=== PATIENT | female | born 1990 | race Caucasian/White ===

== ENCOUNTER 2019-10-10 15:38 | Emergency (ER) | payer OTHER, SELFPAY ==
--- NOTE | 2019-10-10 15:51 | ED.GENADULT ---
HPI - General Adult General Chief complaint: Urogenital-Female Stated complaint: pos uti Time Seen by Provider: 10/10/19 15:59 Source: patient Mode of arrival: ambulatory Limitations: no limitations History of Present Illness HPI narrative: 29-year-old female patient presents to the [facility] with complaints of urinary symptoms for the past 2 days. Patient states she has had burning, urgency and frequency with a little bit of low back pain. Denies any abdominal pain, nausea, vomiting or diarrhea. Denies any fevers. Patient denies any breast-feeding or at this time. Related Data Home Medications Medication Instructions Recorded Confirmed dextroamphetamine-amphetamine 20 mg PO DAILY 08/21/19 10/10/19 [Adderall] Allergies Allergy/AdvReac Type Severity Reaction Status Date / Time Penicillins Allergy Unknown Verified 08/21/19 18:29 Review of Systems Review of Systems: Narrative: CONSTITUTIONAL: Denies fever, chills, or sweats. EYES: Denies visual changes, redness, or discharge. ENT: Denies rhinorrhea, congestion, sore throat, or otalgia. CARDIOVASCULAR: Denies chest pain, palpitations, or edema. RESPIRATORY: Denies cough or dyspnea. GASTROINTESTINAL: Denies abdominal pain, nausea, vomiting, or diarrhea. GENITOURINARY: Denies dysuria or hematuria. Positive pain with urination, urgency, frequency. SKIN: Denies rash or itching. MUSCULOSKELETAL: Positive low back pain, denies joint pain, or myalgia. NEUROLOGIC: Denies headache, numbness, or weakness. PSYCHIATRIC: Denies anxiety or depression. PMFSH Past Medical History Medical History Abnormal uterine bleeding Crohn's disease Depression Renal disease Kidney stones Social History Social History Smoking status: Former smoker Second hand tobacco smoke exposure: No Smoking end date: 08/14/10 Alcohol intake: current Gender identity (if verbalized by the patient): Female Comments At the time of my signature I agree with nursing past medical history, surgical, social, and family history. There is no relevant family history pertinent to the presenting complaint. Exam Narrative: Exam Narrative: GENERAL: Well-appearing, well-nourished, and in no acute distress. HEAD: Normocephalic, atraumatic. EYES: PERRLA and EOMI. ENT: Nares clear, no rhinorrhea or epistaxis. Mucous membranes moist. NECK: Supple. No lymphadenopathy CHEST: Clear to auscultation. No respiratory distress. HEART: Regular rate and rhythm. No murmur heard. Normal peripheral pulses. ABDOMEN: Soft, nontender, nondistended, normal active bowel sounds. No CVA tenderness on percussion. EXTREMITIES: Normal range of motion. No edema. SKIN: Warm, dry, no rash. NEURO: No focal deficits. Alert and oriented x3. Course Vital Signs Vital signs: Vital Signs Temperature 36.6 C 10/10/19 15:53 Pulse Rate 94 10/10/19 15:53 Respiratory Rate 20 10/10/19 15:53 Blood Pressure 103/57 L 10/10/19 15:53 Pulse Oximetry 100 10/10/19 15:53 Temperature 36.6 C 10/10/19 15:53 Pulse Rate 94 10/10/19 15:53 Respiratory Rate 20 10/10/19 15:53 Blood Pressure 103/57 L 10/10/19 15:53 Pulse Oximetry 100 10/10/19 15:53 Vital signs reviewed. Medical Decision Making Differential Diagnosis Differential Diagnosis: Differential diagnosis: Uncomplicated lower UTI, uncomplicated UTI, pyelonephritis Discussed with patient that based on her symptoms as well as her urine dip it does appear that she might have a UTI. Discussed with her we will start her on antibiotics for the symptoms and she can take Tylenol ibuprofen or [id number] AZO for her urinary pain. Patient verbalized understanding denies any other questions or concerns at this time. Vital Signs Vital Signs: Vital Signs Temperature 36.6 C 10/10/19 15:53 Pulse Rate 94 10/10/19 15:53 Respiratory Rate 20
[2019-10-10 15:53] VITALS: BP 103/57; PULSE 94; RESP 20; TEMP 36.6; O2SAT 100
== END 2019-10-10 16:06 | disposition home or self-care (01) ==
PROVIDERS: Emergency Provider Nurse Practitioner Family
DX: N30.01 Acute cystitis with hematuria (principal); Z87.891 Personal history of nicotine dependence; K50.90 Crohn's disease, unspecified, without complications
CPT/HCPCS: 81003; 87077; 87086; 87088; 87186; 99213; G0463

== ENCOUNTER 2020-07-17 13:31 | Emergency (ER) | payer OTHER, SELFPAY ==
--- NOTE | ~2020-07-17 | US_ITS ---
EXAMINATION: US OB <= 14 weeks fetus DATE: 07/17/2020 15:22 INDICATION: Left abdominal pain. TECHNIQUE: Real-time transabdominal and transvaginal pelvic ultrasound was performed. COMPARISON: None. FINDINGS: TRANSABDOMINAL ULTRASOUND: The uterus measures 7.3 x 5.2 x 5.3 cm. TRANSVAGINAL ULTRASOUND: There is an intrauterine gestational sac. A yolk sac is identified. The fet al crown rump length measures 1.0 cm, which correlates with an estimated gestational age of 7 weeks a nd 1 day(s) (+/-) 5 day(s). heart motion is identified measuring beats per minute (bpm) by M-mo de Doppler. The right ovary measures 3.1 x 2.5 x 2.4 cm. The left ovary measures 3.5 x 2.1 x 2.4 cm. There is normal vascular flow in the ovaries. There is no free fluid in the pelvis. IMPRESSION: 1. Single living intrauterine gestation with estimated date of delivery of 03/04/2021. Reviewed, dictated and finalized at location A. UNTING SUPERVISOR IMPRESSION: 1. Single living intrauterine gestation with estimated date of delivery of 02/12.
[2020-07-17 13:36] VITALS: BP 128/80; PULSE 103; RESP 18; TEMP 35.8; O2SAT 100
[2020-07-17 13:50] LABS: Basophils Absolute Auto 0.1 K/mm3 (0.0-0.1); Basophils Percent Auto 1.3 % (0.2-1.2); Eosinophils Absolute Auto 0.2 K/mm3 (0-0.3); Eosinophils Percent Auto 2.6 % (0-4.4); Hematocrit 46.5 % (37.0-47.0); Hemoglobin 16.4 g/dL (12.0-15.0); Immature Granulocyte Absolute 0.03 K/mm3 (0.00-0.031); Immature Granulocyte Percent A 0.3 % (0-0.5); Lymphocytes Absolute Auto 2.47 K/mm3 (0.9-3.2); Lymphocytes Percent Auto 26.5 % (18.3-44.2); Mean Corpuscular HGB Conc 35.3 g/dl (32-36); Mean Corpuscular Hemoglobin 32.3 pg (26-34); Mean Corpuscular Volume 91.7 fl (80-100); Mean Platelet Volume 8.3 fl (7.4-10.4); Monocytes Absolute Auto 0.5 K/mm3 (0.1-0.6); Monocytes Percent Auto 4.8 % (2.6-8.5); Neutrophils Percent Auto 64.5 % (45.5-73.1); Platelet Count Result 279 k/mm3 (150-375); Red Blood Count 5.07 M/mm3 (4.2-5.4); Red Cell Distribution Width 11.7 % (11.5-14.5); White Blood Count 9.3 K/mm3 (4.5-10.0)
--- NOTE | 2020-07-17 14:40 | ED.GENADULT ---
HPI - General Adult General Chief complaint: Abdominal Pain Stated complaint: abd and back pain/ Time Seen by Provider: 07/17/20 14:37 Source: patient Mode of arrival: ambulatory Limitations: no limitations History of Present Illness HPI narrative: Patient is a 30-year-old female who presents to emergency department for evaluation of left lower flank pain that has been present since this morning is a 7 out of 10 pain patient notes that she found out she was in the last week and has had no related complaints patient has follow-up on Monday with her board catcher Dr. Hernandez. Patient on arrival has had Tylenol only denies vaginal bleeding discharge vomiting URI symptoms or other complaints. Patient does note history of kidney stones. Related Data Allergies Allergy/AdvReac Type Severity Reaction Status Date / Time Penicillins Allergy Unknown Unknown Verified 07/17/20 14:40 Review of Systems Review of Systems: All systems reviewed & are unremarkable except as noted in HPI and below PMFSH Past Medical History Medical History (Updated 07/17/20 @ 17:53 by Manuel Bush PA-C) Abnormal uterine bleeding Crohn's disease Depression Renal disease Kidney stones Social History Social History Smoking status: Former smoker Second hand tobacco smoke exposure: No Smoking end date: 08/14/10 Alcohol intake: current Gender identity (if verbalized by the patient): Female Exam Narrative: Exam Narrative: GENERAL: Well-appearing, well-nourished, and in no acute distress. HEAD: Normocephalic, atraumatic. EYES: PERRLA and EOMI. ENT: Nares clear, no rhinorrhea or epistaxis. Mucous membranes moist. CHEST: Clear to auscultation. No respiratory distress. No wheezes rales or rhonchi HEART: Regular rate and rhythm. No murmur heard. Normal peripheral pulses. ABDOMEN: Soft, nontender, nondistende EXTREMITIES: Normal range of motion. No edema. SKIN: Warm, dry, no rash. NEURO: No focal deficits. Alert and oriented x3. PSYCH: Normal mood and affect. Course Course Emergency Course: Patient in the room at this time in no distress no vaginal bleeding patient patient will be managed as a kidney stone no findings concerning for UTI at this time patient given strict reasons to return Case was discussed with the board catcher who will follow the patient and agrees the patient can be managed in this nature given the findings presentation and history. No high risk changes in the ultrasound. Afebrile nontoxic-appearing without emesis Consultations Consultation #1: Discussed case with the board catcher who will follow the patient in clinic on Monday and agrees it can be managed as a kidney stone at this time Date: 07/17/20 Time: 17:50 Vital Signs Vital signs: Vital Signs Temperature 96.5 F L 07/17/20 13:36 Pulse Rate 103 H 07/17/20 13:36 Respiratory Rate 18 07/17/20 13:36 Blood Pressure 128/80 07/17/20 13:36 Pulse Oximetry 100 07/17/20 13:36 Temperature 96.5 F L 07/17/20 13:36 Pulse Rate 105 H 07/17/20 16:29 Respiratory Rate 18 07/17/20 13:36 Blood Pressure 106/72 07/17/20 16:29 Pulse Oximetry 100 07/17/20 13:36 Medical Decision Making MDM Narrative Medical decision making narrative: Patients with findings consistent with either kidney stone could be related however at this time patient hemodynamically stable ABCs intact afebrile nontoxic-appearing patient does not appear uncomfortable patient will follow in clinic as planned feels comfortable with this and is also been given reasons to return and agrees with the plan at hand Vital Signs Vital Signs: Vital Signs Temperature 96.5 F L 07/17/20 13:36 Pulse Rate 103 H 07/17/20 13:36 Respiratory Rate 18 07/17/20 13:36 Blood Pressure 128/80 07/17/20 13:36 Pulse Oximetry 100 07/17/20 13:36 Temperature 96.5 F L 07/17/20 13:36 Pulse Rate 105 H 1
[2020-07-17] MEDS: FAMOTIDINE 20 MG/2 ML VIAL IV PUSH (15:37)
[2020-07-17 15:38] LABS: Alanine Aminotransferase 19 U/L (4-35); Albumin Level 4.3 g/dL (3.5-5.1); Alkaline Phosphatase 39 U/L (38-126); Anion Gap 6 mmol/L (8-16); Aspartate Amino Transferase 24 U/L (14-36); Bilirubin,Total 0.4 mg/dL (0.2-1.3); Blood Urea Nitrogen 11 mg/dL (7-17); Calcium 9.2 mg/dL (8.4-10.2); Carbon Dioxide 26 mmol/L (22-30); Chloride 105 mmol/L (98-107); Estimated CRCL calculation 132 ml/min; Estimated Glomerular Filt Rate > 60; Glucose 103 mg/dL (65-105); Lipase 43 U/L (23-300); Potassium 4.2 mmol/L (3.4-5.0); Sodium 137 mmol/L (137-145)
[2020-07-17] MEDS: SODIUM CHLORIDE 0.9% IV 1,000 ML 999 ML IV CONT (16:06)
[2020-07-17 16:27] VITALS: BP 117/81; PULSE 79
[2020-07-17 16:28] VITALS: BP 112/71; PULSE 90
[2020-07-17 16:29] VITALS: BP 106/72; PULSE 105
[2020-07-17 16:49] LABS: Add Urine Microscopic? YES; Appearance Urine Cloudy (Clear); Bacteria Urine Trace /hpf; Bilirubin Urine Negative (Negative); Blood Urine 1+ (Negative); Color Urine Yellow (Yellow); Glucose Urine UA Negative (Negative); Ketones Urine Negative (Negative); Leukocyte Esterase Ur 1+ LEU/UL (Negative); Mucus Urine Few /lpf; Nitrate Urine Negative (Negative); Protein Urine Negative (Negative); Squamous Epithelial Cell Urine Many /hpf (Few); Urobilinogen Urine Negative mg/dL (<2.0)
[2020-07-17 18:34] VITALS: BP 128/82; PULSE 80; RESP 16; O2SAT 97
--- NOTE | 2020-07-24 17:46 | PC.NURSE ---
LATE ENTRY This note is being entered to document information to the patient's record. The following information was omitted on [07/17/20], by [richard telles]. [facility] start 175 end [id number]
== END 2020-07-17 18:34 | disposition home or self-care (01) ==
PROVIDERS: Emergency Medicine Emergency Medical Services; Emergency Provider Emergency Medicine; PCP Nurse Practitioner Family
DX: O26.891 Other specified pregnancy related conditions, first trimester (principal); R10.32 Left lower quadrant pain; O99.611 Diseases of the digestive system complicating pregnancy, first trimester; K50.90 Crohn's disease, unspecified, without complications; Z87.891 Personal history of nicotine dependence; Z87.442 Personal history of urinary calculi; Z3A.01 Less than 8 weeks gestation of pregnancy
CPT/HCPCS: 36415; 76801; 80053; 81001; 83690; 84702; 85025; 85461; 87086; 87088; 96374; 96375; 99284; J0131; J7030

== ENCOUNTER 2020-07-27 09:25 | Outpatient (CLI) | payer OTHER, SELFPAY ==
--- NOTE | ~2020-07-27 | US_ITS ---
EXAMINATION: US OB <=14 wk fetus w TV DATE: 07/27/2020 10:25 INDICATION: with inconclusive viability during first trimester. TECHNIQUE: Real-time pelvic ultrasound utilizing both a transvaginal and transabdominal probe was pe rformed. The interpreting radiologist was not present for the study. COMPARISON: 07/17/2020 FINDINGS: The uterus measures 11.1 x 4.8 x 6.1 cm. There is an intrauterine gestational sac. A yolk sac and fe kerri pole are identified. The crown rump length measures 1.6 cm, which correlates with an estimated ge stational age of 8 weeks and 0 days. No heart motion evident by M-mode Doppler. 9 x 8 x 4 mm sm all hypoechoic subchorionic hematoma. The right ovary measures 1.9 x 3.3 x 1.9 cm. The left ovary measures 2.8 x 1.6 x 2.3 cm. 10 mm hypoec hoic likely corpus luteum cyst in the right ovary. Vascular flow identified in both ovaries on color Doppler. There is no free fluid in the pelvis. IMPRESSION: 1. Single intrauterine fetus with crown-rump length of 1.6 cm correspond to estimated gestational age of 8 weeks and 1 day but with no discernible heart motion on Doppler imaging consistent with d emise. 2. Small subchorionic hematoma. Reviewed, dictated and finalized at location B. ING WHEEL OPERATOR HELPER IMPRESSION: 1. Single intrauterine fetus with crown-rump length of 1.6 cm correspond to est imated gestational age of 8 weeks and 1 day but with no discernible heart motio n on Doppler imaging consistent with demise. 2. Small subchorionic hematoma.
== END 2020-07-27 09:26 | disposition home or self-care (01) ==
PROVIDERS: PCP Nurse Practitioner Family; Visit Provider Obstetrics & Gynecology
DX: O36.80X0 Pregnancy with inconclusive fetal viability, not applicable or unspecified (principal); Z3A.00 Weeks of gestation of pregnancy not specified
CPT/HCPCS: 76801; 76817

== ENCOUNTER 2020-07-28 19:02 | Emergency (ER) | payer OTHER, SELFPAY ==
[2020-07-28 19:06] VITALS: BP 127/76; PULSE 119; RESP 18; TEMP 36.4; O2SAT 96
--- NOTE | 2020-07-28 19:10 | ED.PREGNANCY ---
HPI - General Chief complaint: Urogenital-Female Stated complaint: Miscarriage, ABD Pain Time Seen by Provider: 07/28/20 19:04 History of Present Illness HPI Narrative: 30 yo female at approximately 10 weeks gestation presents with expected miscarriage. She reports that she had an US done yesterday here show a fetus that was smaller than expected size with no heart activity seen. Today she reports that she had heavy bleeding and severe pain. On questioning she is not able to quatify bleeding, but denies going through more than a pad per hour. Related Data Home Medications Medication Instructions Recorded Confirmed dextroamphetamine-amphetamine 20 20 mg PO DAILY 07/21/20 mg tablet prenat.vits,jatinder,mne-xdvl-inxze 1 tablet PO DAILY 07/22/20 07/22/20 Allergies Allergy/AdvReac Type Severity Reaction Status Date / Time Penicillins Allergy Unknown Unknown Verified 07/28/20 19:09 Review of Systems Review of Systems: All systems reviewed & are unremarkable except as noted in HPI and below Constitutional: Constitutional: Denies chills and Denies fever(s) ENT: Reports dizziness Cardiovascular: Cardiovascular: Denies chest pain Respiratory: Respiratory: Denies dyspnea Gastrointestinal: Gastrointestinal: Reports abdominal pain, Denies diarrhea, Reports nausea and Denies vomiting Genitourinary: Genitourinary: Reports abnormal vaginal bleeding, Denies hematuria, Denies dysuria and Denies vaginal discharge Neurologic: Denies dizziness and Denies weakness PMFSH Past Medical History Medical History Abnormal uterine bleeding Crohn's disease Depression Renal disease Kidney stones Surgical History Surgical History Hx of laparoscopy Social History Social History Smoking status: Current every day smoker Second hand tobacco smoke exposure: No Smoking end date: 08/14/10 Alcohol intake: current Gender identity (if verbalized by the patient): Female Exam Const: General: healthy appearing, no acute distress and alert Orientation/consciousness: patient oriented x3 HENMT: Head: normal to inspection Neck: Neck: normal visual inspection and no lymphadenopathy Chest: Chest palpation & inspection: no tenderness Resp: Effort & Inspection: normal respiratory effort Auscultation: clear to auscultation bilaterally, no rales, no rhonchi and no wheezes Cardio: Jugular venous distension: no JVD Rate: regular rate Rhythm: regular rhythm Heart sounds: no murmurs GI: Inspection: non-distended GI Palp: Yes Soft to palpation and Yes Tenderness to palpation present (GI) (suprapubic) Skin: General skin exam: normal color Neuro: General: patient oriented x3 and moves all extremities Speech: normal speech Extrem: General: no edema Psych: Appearance: well kempt Affect: normal affect Course Vital Signs Vital signs: Vital Signs Temperature 36.4 C 07/28/20 19:06 Pulse Rate 119 H 07/28/20 19:06 Respiratory Rate 18 07/28/20 19:06 Blood Pressure 127/76 07/28/20 19:06 Pulse Oximetry 96 07/28/20 19:06 Temperature 36.4 C 07/28/20 19:06 Pulse Rate 68 07/28/20 21:31 Respiratory Rate 16 07/28/20 21:31 Blood Pressure 118/76 07/28/20 21:31 Pulse Oximetry 99 07/28/20 21:31 MDM - OB/Uterine Contractions MDM Narrative Medical decision making narrative: No rapid bleeding. rh positive. Case discussed with Dr. Toledo. No indication for labs or admission. She can follow-up with them tomorrow. Medical Records Attestation: I reviewed the patient's medical records. Lab Data Attestation: I reviewed the patient's lab results. Discharge Plan Discharge Clinical Impression: Incomplete miscarriage Patient Disposition: Home, Self-Care Condition: Stable Instructions: Miscarriage (ED)
[2020-07-28] MEDS: HYDROcodone/acetaminophen (*CRX) 5-325 MG TABLET 1 TAB PO (20:10)
[2020-07-28] MEDS: KETOROLAC (*BKC) 60 MG/2 ML VIAL IM (20:10)
[2020-07-28 21:31] VITALS: BP 118/76; PULSE 68; RESP 16; O2SAT 99
== END 2020-07-28 22:01 | disposition home or self-care (01) ==
PROVIDERS: Emergency Provider Emergency Medicine; PCP Nurse Practitioner Family
DX: O03.4 Incomplete spontaneous abortion without complication (principal); O99.331 Smoking (tobacco) complicating pregnancy, first trimester; Z3A.10 10 weeks gestation of pregnancy; O99.619 Diseases of the digestive system complicating pregnancy, unspecified trimester; K50.90 Crohn's disease, unspecified, without complications
CPT/HCPCS: 96372; 99283; A9270; J1885

== ENCOUNTER 2020-08-13 11:39 | Outpatient (RCR) | payer OTHER, SELFPAY | END 2020-10-27 23:59 | disposition home or self-care (01) | LOC: ANHLAB 11:39 | PROVIDERS: PCP Nurse Practitioner Family; Visit Provider Obstetrics & Gynecology | DX: O03.9 Complete or unspecified spontaneous abortion without complication (principal) | CPT/HCPCS: 36415; 84702 ==

== ENCOUNTER 2020-08-28 17:18 | Outpatient (CLI) | payer OTHER, SELFPAY ==
[2020-08-28 18:31] LABS: Beta HCG Quantitative 29.31 mIU/ML
== END 2020-08-28 17:19 | disposition home or self-care (01) ==
LOC: ANHLAB 17:20
PROVIDERS: PCP Nurse Practitioner Family; Visit Provider Obstetrics & Gynecology
DX: N91.2 Amenorrhea, unspecified (principal)
CPT/HCPCS: 36415; 84702

== ENCOUNTER 2020-09-12 09:39 | Outpatient (CLI) | payer OTHER, SELFPAY ==
[2020-09-12 10:15] LABS: Basophils Absolute Auto 0.1 K/mm3 (0.0-0.1); Eosinophils Absolute Auto 0.2 K/mm3 (0-0.3); Eosinophils Percent Auto 3.2 % (0-4.4); Hematocrit 42.5 % (37.0-47.0); Hemoglobin 14.9 g/dL (12.0-15.0); Immature Granulocyte Absolute 0.02 K/mm3 (0.00-0.031); Immature Granulocyte Percent A 0.3 % (0-0.5); Lymphocytes Percent Auto 25.2 % (18.3-44.2); Mean Corpuscular HGB Conc 35.1 g/dl (32-36); Mean Corpuscular Hemoglobin 32.2 pg (26-34); Mean Corpuscular Volume 91.8 fl (80-100); Mean Platelet Volume 8.9 fl (7.4-10.4); Monocytes Absolute Auto 0.5 K/mm3 (0.1-0.6); Monocytes Percent Auto 6.5 % (2.6-8.5); Neutrophils Absolute Auto 4.6 K/mm3 (1.3-6.7); Neutrophils Percent Auto 63.8 % (45.5-73.1); Platelet Count Result 242 k/mm3 (150-375); Red Blood Count 4.63 M/mm3 (4.2-5.4); Red Cell Distribution Width 11.9 % (11.5-14.5); White Blood Count 7.1 K/mm3 (4.5-10.0)
[2020-09-12 10:28] LABS: Alanine Aminotransferase 11 U/L (4-35); Albumin Level 4.1 g/dL (3.5-5.1); Alkaline Phosphatase 40 U/L (38-126); Anion Gap 3 mmol/L (8-16); Aspartate Amino Transferase 20 U/L (14-36); Bilirubin,Total 0.6 mg/dL (0.2-1.3); Blood Urea Nitrogen 7 mg/dL (7-17); Calcium 9.4 mg/dL (8.4-10.2); Carbon Dioxide 29 mmol/L (22-30); Chloride 106 mmol/L (98-107); Cholesterol 177 mg/dL (0-200); Estimated Glomerular Filt Rate > 60; Glucose 90 mg/dL (65-105); HDL Direct 58 mg/dL; Potassium 4.3 mmol/L (3.4-5.0); Sodium 138 mmol/L (137-145); Triglycerides 71 mg/dL (<150)
[2020-09-12 10:39] LABS: LDL Cholesterol Direct 95 mg/dL
[2020-09-12 10:43] LABS: Beta HCG Quantitative 3.21 mIU/ML
[2020-09-12 11:32] LABS: Thyroid Stimulating Hormone Reflex 0.882 uIU/mL (0.465-4.68)
== END 2020-09-12 09:40 | disposition home or self-care (01) ==
PROVIDERS: PCP Nurse Practitioner Family; Referring Provider Nurse Practitioner Family; Visit Provider Obstetrics & Gynecology
DX: Z13.0 Encounter for screening for diseases of the blood and blood-forming organs and certain disorders involving the immune mechanism (principal); Z13.1 Encounter for screening for diabetes mellitus; Z13.220 Encounter for screening for lipoid disorders; Z13.29 Encounter for screening for other suspected endocrine disorder; O03.9 Complete or unspecified spontaneous abortion without complication
CPT/HCPCS: 36415; 80053; 80061; 84443; 84702; 85025

== ENCOUNTER 2020-10-03 10:23 | Emergency (ER) | payer OTHER, SELFPAY ==
[2020-10-03 10:34] VITALS: BP 128/67; PULSE 94; RESP 20; TEMP 36.4; O2SAT 100
--- NOTE | 2020-10-03 10:52 | ED.SKABFB ---
HPI - Skin/Abscess/Foreign Bdy General Chief complaint: Skin/Abscess/Foreign Body Stated complaint: frostbite Time Seen by Provider: 10/03/20 10:38 Source: patient and RN notes reviewed Mode of arrival: ambulatory Limitations: no limitations History of Present Illness HPI narrative: Patient presents today reporting that she may have frostbite to her left toes. She shoveled snow a few days ago wearing some cloth UGG boots. She didn't note any injury, discoloration, or pain at this time. Last night, she noted some discoloration to her second, third, and fourth toes as well as some possible blistering. She had been Googling and came to the conclusion that she may have frostbite. Currently rates her pain 8/10 and has tried no hfjn-ffm-qoljvzn interventions prior to arrival. Denies numbness or tingling in the foot or toes. She has been ambulatory. After further questioning, patient states that while she was shoveling the snow, she was kicking the hard snow and ice with her left foot/toe of her boot quite frequently. Related Data Home Medications Medication Instructions Recorded Confirmed dextroamphetamine-amphetamine 20 20 mg PO DAILY 07/21/20 10/03/20 mg tablet doxycycline monohydrate 50 mg DAILY 10/03/20 10/03/20 spironolactone 50 mg DAILY 10/03/20 10/03/20 Allergies Allergy/AdvReac Type Severity Reaction Status Date / Time Penicillins Allergy Unknown Unknown Verified 07/29/20 14:54 Review of Systems Review of Systems: Narrative: CONSTITUTIONAL: Denies body aches, fever, chills, or sweats. EYES: Denies visual changes, redness, or discharge. ENT: Denies rhinorrhea, congestion, sore throat, or otalgia. CARDIOVASCULAR: Denies chest pain, palpitations, or edema. RESPIRATORY: Denies cough or dyspnea. GASTROINTESTINAL: Denies abdominal pain, nausea, vomiting, or diarrhea. GENITOURINARY: Denies dysuria or hematuria. SKIN: + Discoloration and pain to left second, third, and fourth toes MUSCULOSKELETAL: Denies back pain, joint pain, or myalgia. NEUROLOGIC: Denies headache, numbness, tingling, or weakness. PSYCH: Denies depression or anxiety. [facility] Past Medical History Medical History Abnormal uterine bleeding Crohn's disease Depression Renal disease Kidney stones Surgical History Surgical History Hx of laparoscopy Social History Social History Smoking status: Current every day smoker Second hand tobacco smoke exposure: No Smoking end date: 08/14/10 Alcohol intake: current Gender identity (if verbalized by the patient): Female Comments At time of signature, I have reviewed and agree with nursing past medical, surgical, social and family history unless otherwise noted. Please see nursing chart for further information. There is no relevant family history pertinent to the presenting complaint Exam Narrative: Exam Narrative: GENERAL: Well-appearing, well-nourished, and in no acute distress. HEAD: Normocephalic, atraumatic. EYES: EOMI. No redness or drainage. Conjunctivae normal. ENT: Mucous membranes pink and moist. NECK: Normal AROM. CHEST: No respiratory distress. EXTREMITIES: Left toes:2nd toe- ~2mm round area of ecchymosis to the distal and slightly lateral surface of the toe. 3rd toe-distal and middle phalanx with ecchymosis very superficial blistering. Tender to palpation. 4th toe-~3mm area of the distal and slightly medial aspect of the toe with some ecchymosis. All areas consistent with friction blisters and bruising, possibly from frequently kicking ice and packed snow with cloth boots. Distal sensation intact in all toes. Capillary refill normal. Pedal pulse normal. There is no indication of frostbite, open wounds, induration, erythema or any other signs of cellulitis or necrosis. SKIN: Warm, dry, no rash. Capillary refi
== END 2020-10-03 10:58 | disposition home or self-care (01) ==
PROVIDERS: Emergency Provider Nurse Practitioner; PCP Nurse Practitioner Family
DX: S90.425A Blister (nonthermal), left lesser toe(s), initial encounter (principal); X58.XXXA Exposure to other specified factors, initial encounter; F17.200 Nicotine dependence, unspecified, uncomplicated; K50.90 Crohn's disease, unspecified, without complications
CPT/HCPCS: 99212; G0463

== ENCOUNTER 2021-04-04 16:50 | Emergency (ER) | payer OTHER, SELFPAY ==
--- NOTE | ~2021-04-04 | XR_ITS ---
EXAMINATION: XR abdomen/kub 1V DATE: 04/04/2021 17:42 INDICATION: Left flank pain. TECHNIQUE: A supine view of the abdomen on 2 radiographs was obtained. COMPARISON: CT abdomen and pelvis 08/20/2012 FINDINGS: There are no dilated loops of bowel. There is a moderate volume of stool in the colon. Ther e are phleboliths in the pelvis. Surgical clips in the right upper quadrant are likely from cholecyst ectomy. IMPRESSION: 1. No visible urolithiasis. Reviewed, dictated and finalized at location A. IMPRESSION: 1. No visible urolithiasis.
[2021-04-04 16:59] VITALS: BP 130/76; PULSE 90; RESP 18; TEMP 36.4; O2SAT 100
--- NOTE | 2021-04-04 17:24 | ED.FEMALEGU ---
HPI - Female Genitourinary General Chief complaint: Urogenital-Female Stated complaint: uti Time Seen by Provider: 04/04/21 17:25 Source: patient and RN notes reviewed Mode of arrival: ambulatory Limitations: no limitations History of Present Illness HPI Narrative: 31-year-old female presents concern for flank pain, difficulty emptying bladder, nausea reports. Reports history of kidney stones, reports this is very similar to past instances of stones. Reports nausea. Reports she has been taking ibuprofen with little relief. She denies dysuria, hematuria, frequency, urgency. Denies abdominal pain, diarrhea. Denies injury or trauma. Denies loss of bowel or bladder function, perianal anesthesia. MD elicited complaint: UTI Related Data Home Medications Medication Instructions Recorded Confirmed dextroamphetamine-amphetamine 20 20 mg PO DAILY 07/21/20 04/04/21 mg tablet doxycycline monohydrate 50 mg DAILY 10/03/20 04/04/21 spironolactone 50 mg DAILY 10/03/20 04/04/21 Allergies Allergy/AdvReac Type Severity Reaction Status Date / Time Penicillins Allergy Unknown Unknown Verified 07/29/20 14:54 Review of Systems Review of Systems: CONSTITUTIONAL: Denies malaise, chills, sweats, or fever. CARDIOVASCULAR: Denies chest pain, palpitations, or edema. RESPIRATORY: Denies cough or dyspnea. GASTROINTESTINAL: Denies abdominal pain, nausea, vomiting, diarrhea. Reports flank pain GENITOURINARY: Denies dysuria frequency, urgency, or hematuria. Reports difficulty emptying bladder SKIN: Denies bruising, redness, swelling, warmth MUSCULOSKELETAL: Reports left flank pain. Denies joint pain or myalgia. NEUROLOGIC: Denies numbness, weakness, or headache. All systems reviewed & are unremarkable except as noted in HPI and below [facility] Past Medical History Medical History Abnormal uterine bleeding Crohn's disease Depression Renal disease Kidney stones Surgical History Surgical History Hx of laparoscopy Social History Social History Smoking status: Current every day smoker Second hand tobacco smoke exposure: No Smoking end date: 08/14/10 Alcohol intake: current Gender identity (if verbalized by the patient): Female Comments At time of signature, agree with nursing past medical, surgical, social and family history. There is no relevant family history pertinent to the presenting complaint Exam Narrative: GENERAL: Nontoxic-appearing, well-nourished, and in no acute distress. Patient unable to sit straight in the chair likely related to pain HEAD: Normocephalic. EYES: PERRLA, conjunctivae clear. NECK: Supple. No lymphadenopathy CHEST: Clear to auscultation. No respiratory distress. HEART: Regular rate and rhythm. ABDOMEN: Soft, nontender upon palpation, no guarding. Left flank tenderness SKIN: Warm, dry, no rash. NEURO: Alert and oriented x3. PSYCH: Patient tearful Course Course Emergency Course: Discussed with patient limited diagnostic capability at [facility] and offer transfer to emergency department for further evaluation. Patient reports she is unable to go to the emergency department this time, reports that she understands reasons to go to the emergency room with symptoms worsen in do not improve with prescribed medications. Patient will follow up with urology. Patient is aware of diagnosis, understands and agrees to treatment plan. Anticipatory guidance given. Patient agrees to follow-up as directed and is aware of reasons to seek care at the emergency department. Portions of this record may have been created with voice recognition software Vital Signs Vital signs: Vital Signs Temperature 97.6 F 04/04/21 16:59 Pulse Rate 90 04/04/21 16:59 Respiratory Rate 18 04/04/21 16:59 Blood Pressure 130/76 04/04/21 16:59 Pulse Oxim
[2021-04-04] MEDS: KETOROLAC (*BKC) 60 MG/2 ML VIAL IM (17:46)
== END 2021-04-04 18:04 | disposition home or self-care (01) ==
PROVIDERS: Emergency Provider Nurse Practitioner; PCP Nurse Practitioner Family
DX: R10.9 Unspecified abdominal pain (principal); Z87.442 Personal history of urinary calculi; F17.200 Nicotine dependence, unspecified, uncomplicated; K50.90 Crohn's disease, unspecified, without complications
CPT/HCPCS: 74018; 81003; 96372; 99213; G0463; J1885

== ENCOUNTER 2021-05-28 16:43 | Outpatient (RCR) | payer OTHER, SELFPAY ==
[2021-05-25 16:57] LABS: Beta HCG Quantitative 58.84 mIU/ML
[2021-05-28 07:07] LABS: Progesterone 5.4 ng/mL (***)
[2021-05-28 17:31] LABS: Beta HCG Quantitative 36.46 mIU/ML
[2021-05-30 07:04] LABS: Progesterone 5.9 ng/mL (***)
== END 2021-08-23 23:59 | disposition home or self-care (01) ==
LOC: ANHLAB 16:43
PROVIDERS: PCP Nurse Practitioner Family; Visit Provider Obstetrics & Gynecology
DX: O09.299 Supervision of pregnancy with other poor reproductive or obstetric history, unspecified trimester (principal); Z3A.00 Weeks of gestation of pregnancy not specified
CPT/HCPCS: 36415; 84144; 84702

== ENCOUNTER 2021-06-02 07:26 | Outpatient (CLI) | payer OTHER, SELFPAY ==
[2021-06-02 08:22] LABS: Beta HCG Quantitative 4.92 mIU/ML
== END 2021-06-02 07:27 | disposition home or self-care (01) ==
PROVIDERS: PCP Nurse Practitioner Family; Visit Provider Obstetrics & Gynecology
DX: O09.299 Supervision of pregnancy with other poor reproductive or obstetric history, unspecified trimester (principal); Z3A.00 Weeks of gestation of pregnancy not specified
CPT/HCPCS: 36415; 84702

== ENCOUNTER → 2021-06-24 03:11 | Outpatient (CLI) | payer OTHER, SELFPAY ==
[2021-06-24 17:50] LABS: SARS-CoV-2 RNA PCR Positive
== END ==
PROVIDERS: PCP Nurse Practitioner Family; Visit Provider Nurse Practitioner Family
DX: U07.1 COVID-19 (principal)
CPT/HCPCS: C9803; U0003; U0005

== ENCOUNTER 2021-07-23 13:50 | Outpatient (CLI) | payer OTHER, SELFPAY ==
[2021-07-23 14:57] LABS: Thyroid Stimulating Hormone 0.906 uIU/mL (0.465-4.680)
[2021-07-27 16:23] LABS: FSH 3.6 mIU/mL (***); Progesterone 7.1 ng/mL (***)
[2021-07-27 19:50] LABS: Anti Cardiolipin Antibody IgA <2.0 APL-U/mL (<20.0); Anti Cardiolipin Antibody IgG <2.0 GPL-U/mL (<20.0)
[2021-07-27 20:10] LABS: Lupus dRVVT 1:1 Mix Interpreta Not Indicated; Lupus dRVVT Screen 31 sec (<=45); PTT-LA Screen 33 sec (<=40)
== END 2021-07-23 13:51 | disposition home or self-care (01) ==
LOC: ANHLAB 13:52
PROVIDERS: PCP Nurse Practitioner Family; Visit Provider Obstetrics & Gynecology
DX: N96 Recurrent pregnancy loss (principal)
CPT/HCPCS: 36415; 83001; 84144; 84436; 84443; 85613; 85730; 86147

== ENCOUNTER 2021-07-31 12:32 | Outpatient (CLI) | payer OTHER, SELFPAY ==
[2021-08-04 18:20] LABS: FSH 8.8 mIU/mL (***)
== END 2021-07-31 12:33 | disposition home or self-care (01) ==
PROVIDERS: PCP Nurse Practitioner Family; Visit Provider Obstetrics & Gynecology
DX: N96 Recurrent pregnancy loss (principal)
CPT/HCPCS: 36415; 83001

== ENCOUNTER 2021-08-18 07:28 | Outpatient (CLI) | payer OTHER, SELFPAY ==
[2021-08-21 15:11] LABS: Progesterone 8.2 ng/mL (***)
== END 2021-08-18 07:29 | disposition home or self-care (01) ==
PROVIDERS: PCP Nurse Practitioner Family; Visit Provider Obstetrics & Gynecology
DX: O03.9 Complete or unspecified spontaneous abortion without complication (principal); Z3A.00 Weeks of gestation of pregnancy not specified
CPT/HCPCS: 36415; 84144

== ENCOUNTER 2021-09-29 17:00 | Outpatient (RCR) | payer OTHER, SELFPAY ==
[2021-09-20 16:34] LABS: Beta HCG Quantitative 84.24 mIU/ML
[2021-09-22 17:42] LABS: Beta HCG Quantitative 208.52 mIU/ML
[2021-09-23 05:24] LABS: Progesterone 33.8 ng/mL (***)
[2021-09-25 07:44] LABS: Progesterone 38.8 ng/mL (***)
== END 2021-12-19 23:59 | disposition home or self-care (01) ==
LOC: ANHLAB 17:00
PROVIDERS: PCP Nurse Practitioner Family; Visit Provider Obstetrics & Gynecology
DX: O26.20 Pregnancy care for patient with recurrent pregnancy loss, unspecified trimester (principal); Z3A.00 Weeks of gestation of pregnancy not specified
CPT/HCPCS: 36415; 84144; 84702

== ENCOUNTER 2021-10-05 07:58 | Outpatient (CLI) | payer OTHER, SELFPAY ==
--- NOTE | ~2021-10-05 | US_ITS ---
EXAMINATION: US OB <=14 wk fetus w TV DATE: 10/05/2021 08:46 INDICATION: Establish dating of during first trimester TECHNIQUE: Real-time pelvic ultrasound utilizing transabdominal probe was performed. The shari estevez radiologist was not present for the study. COMPARISON: None. FINDINGS: The uterus measures 9.3 x 5.3 x 5.8 cm. There is an intrauterine gestational sac. A yolk sac and fet al pole are identified. The crown rump length measures 4 mm, which correlates with an estimated gesta tional age of 6 weeks and 1 days. heart motion is identified measuring 123 beats per minute (bp m) by M-mode Doppler. 1.2 x 0.5 x 0.7 cm hypoechoic subchorionic hematoma along the left side of the gestational sac The right ovary measures 2.8 x 1.5 x 1.6 cm. The left ovary measures 2.5 x 2.0 x 2.3 cm. 2.0 cm anech oic cyst in the left ovary. Mei flow identified in both ovaries on color Doppler. There is no free fluid in the pelvis. IMPRESSION: 1. Single living fetus with heart rate of 123 bpm. 2. Gestational age by ultrasound of 6 weeks 1 day(s) +/- 4 day(s) with ultrasound estimated date of delivery (LACY) of 05/30/2022. Reviewed, dictated and finalized at location A. FISHER IMPRESSION: 1. Single living fetus with heart rate of 123 bpm. 2. Gestational age by ultrasound of 6 weeks 1 day(s) +/- 4 day(s) with ultraso und estimated date of delivery (LACY) of 05/30/2022.
== END 2021-10-05 07:59 | disposition home or self-care (01) ==
LOC: ANHIMG 08:02
PROVIDERS: PCP Nurse Practitioner Family; Visit Provider Obstetrics & Gynecology
DX: Z34.90 Encounter for supervision of normal pregnancy, unspecified, unspecified trimester (principal); Z3A.01 Less than 8 weeks gestation of pregnancy
CPT/HCPCS: 76801; 76817

== ENCOUNTER 2022-02-28 08:33 | Outpatient (CLI) | payer OTHER, SELFPAY ==
[2022-02-28 09:04] LABS: Basophils Absolute Auto 0.1 K/mm3 (0.0-0.1); Basophils Percent Auto 0.7 % (0.2-1.2); Eosinophils Absolute Auto 0.1 K/mm3 (0-0.3); Eosinophils Percent Auto 1.1 % (0-4.4); Hematocrit 37.9 % (37.0-47.0); Hemoglobin 13.2 g/dL (12.0-15.0); Immature Granulocyte Absolute 0.12 K/mm3 (0.00-0.031); Immature Granulocyte Percent A 1.2 % (0-0.5); Lymphocytes Absolute Auto 1.66 K/mm3 (0.9-3.2); Lymphocytes Percent Auto 16.7 % (18.3-44.2); Mean Corpuscular HGB Conc 34.8 g/dl (32-36); Mean Corpuscular Hemoglobin 31.1 pg (26-34); Mean Corpuscular Volume 89.2 fl (80-100); Mean Platelet Volume 8.5 fl (7.4-10.4); Monocytes Absolute Auto 0.6 K/mm3 (0.1-0.6); Monocytes Percent Auto 5.5 % (2.6-8.5); Neutrophils Absolute Auto 7.4 K/mm3 (1.3-6.7); Neutrophils Percent Auto 74.8 % (45.5-73.1); Platelet Count Result 248 k/mm3 (150-375); Red Blood Count 4.25 M/mm3 (4.2-5.4); Red Cell Distribution Width 13.2 % (11.5-14.5); White Blood Count 9.9 K/mm3 (4.5-10.0)
[2022-02-28 09:54] LABS: Vitamin D 25 Hydroxy 31.5 ng/mL
[2022-02-28 10:37] LABS: Glucose 1 Hour PP 50gm Dose 120 mg/dL
== END 2022-02-28 08:34 | disposition home or self-care (01) ==
LOC: ANHLAB 08:37
PROVIDERS: PCP Nurse Practitioner Family; Visit Provider Obstetrics & Gynecology
DX: Z34.90 Encounter for supervision of normal pregnancy, unspecified, unspecified trimester (principal); Z3A.00 Weeks of gestation of pregnancy not specified
CPT/HCPCS: 36415; 82306; 82947; 85025

== ENCOUNTER 2022-03-09 11:59 | Outpatient (CLI) | payer OTHER, SELFPAY ==
[2022-03-09 12:22] VITALS: BP 114/68; PULSE 78
[2022-03-09 12:51] LABS: Appearance Urine Slightly Cloudy (Clear); Bilirubin Urine Negative (Negative); Blood Urine Negative (Negative); Color Urine Yellow (Yellow); Glucose Urine UA Negative (Negative); Ketones Urine Negative (Negative); Leukocyte Esterase Ur Trace LEU/UL (Negative); Nitrate Urine Negative (Negative); Protein Urine Negative (Negative); Urobilinogen Urine 0.2 mg/dL (<2.0)
[2022-03-09 12:56] VITALS: BP 114/68; PULSE 78
[2022-03-09 12:57] LABS: Add Urine Microscopic? YES; Bacteria Urine Trace /hpf; Mucus Urine Rare /lpf; RBC Urine 0-2 /hpf (0-2); Squamous Epithelial Cell Urine Many /hpf (Few); WBC Urine 0-3 /hpf
== END 2022-03-09 13:08 | disposition home or self-care (01) ==
LOC: ANHOBOP 12:05 → ANHOBPP 12:06
PROVIDERS: PCP Nurse Practitioner Family; Visit Provider Obstetrics & Gynecology
DX: O42.90 Premature rupture of membranes, unspecified as to length of time between rupture and onset of labor, unspecified weeks of gestation (principal); Z3A.00 Weeks of gestation of pregnancy not specified
CPT/HCPCS: 59025; 81001; 84112; 99199

== ENCOUNTER 2022-04-08 14:45 | Outpatient (CLI) | payer OTHER, SELFPAY ==
[2022-04-08 15:06] LABS: Basophils Absolute Auto 0.1 K/mm3 (0.0-0.1); Basophils Percent Auto 0.7 % (0.2-1.2); Eosinophils Absolute Auto 0.1 K/mm3 (0-0.3); Eosinophils Percent Auto 1.2 % (0-4.4); Hematocrit 33.3 % (37.0-47.0); Hemoglobin 11.5 g/dL (12.0-15.0); Immature Granulocyte Absolute 0.13 K/mm3 (0.00-0.031); Immature Granulocyte Percent A 1.3 % (0-0.5); Lymphocytes Absolute Auto 2.02 K/mm3 (0.9-3.2); Lymphocytes Percent Auto 20.4 % (18.3-44.2); Mean Corpuscular HGB Conc 34.5 g/dl (32-36); Mean Corpuscular Volume 89.8 fl (80-100); Mean Platelet Volume 8.4 fl (7.4-10.4); Monocytes Absolute Auto 0.6 K/mm3 (0.1-0.6); Monocytes Percent Auto 5.6 % (2.6-8.5); Neutrophils Percent Auto 70.8 % (45.5-73.1); Platelet Count Result 211 k/mm3 (150-375); Red Blood Count 3.71 M/mm3 (4.2-5.4); Red Cell Distribution Width 13.2 % (11.5-14.5); White Blood Count 9.9 K/mm3 (4.5-10.0)
[2022-04-08 16:03] LABS: HIV 1/2 Ab P24 Ag Result Negative (Negative)
[2022-04-11 07:34] LABS: Rapid Plasma Reagin Non-Reactive (NonReactive)
== END 2022-04-08 14:46 | disposition home or self-care (01) ==
LOC: ANHLAB 14:46
PROVIDERS: PCP Nurse Practitioner Family; Visit Provider Obstetrics & Gynecology
DX: Z34.90 Encounter for supervision of normal pregnancy, unspecified, unspecified trimester (principal); Z3A.00 Weeks of gestation of pregnancy not specified
CPT/HCPCS: 36415; 85025; 86592; 86703; G0432

== ENCOUNTER 2022-05-14 11:01 | Outpatient (RCR) | payer OTHER, SELFPAY ==
--- NOTE | ~2022-05-14 | US_ITS ---
EXAMINATION: US OB BPP wo non-stress DATE: 05/14/2022 12:44 INDICATION: Decreased movement. Third trimester. TECHNIQUE: Real-time pelvic ultrasound was performed. COMPARISON: Ultrasound 10/05/2021 FINDINGS: There is a single living fetus in vertex presentation. The placenta is anterior. heart rate is 161 beats per minute (bpm). Biophysical profile performed by the technologist: breathing (30 sec sustained breathing in 30 minutes): 2 out of 2 movement (3 gross body movements in 30 minutes): 2 out of 2 tone (one episode of npemfra-ixajbbylw-ouyyclh limb movement): 2 out of 2 Amniotic fluid pocket (2 cm): 2 out of 2 Total score: 8 out of 8 IMPRESSION: 1. Single living fetus in vertex presentation. 2. Biophysical profile 8 out of 8. Reviewed, dictated and finalized at location A.
[2022-05-14 12:07] VITALS: BP 119/68; PULSE 98
== END 2022-07-15 07:34 | disposition home or self-care (01) ==
LOC: ANHOBOP 11:01
PROVIDERS: PCP Nurse Practitioner Family; Visit Provider Obstetrics & Gynecology
DX: O36.8130 Decreased fetal movements, third trimester, not applicable or unspecified (principal); Z3A.37 37 weeks gestation of pregnancy
CPT/HCPCS: 59025; 76819

== ENCOUNTER 2022-05-15 20:18 | Inpatient (IN) | payer OTHER, SELFPAY ==
[2022-05-15] VITALS (41 sets, daily range): BP systolic 88–131; BP diastolic 45–97; PULSE 75–94; RESP 16; TEMP 36.8; O2SAT 96–99; BMI 34.9
--- NOTE | 2022-05-15 20:18 | LDADM ---
This patient, Carline Florentino, was admitted to Labor/Delivery/Recovery 105 on 05/15/22 at 20:18. Plans for labor, pain management and were discussed with patient. Patient/family oriented to hospital policies and general routines including ID bracelet, bed and alarms, visiting hours, pain management, procedures, bathroom and other care routines, personal items, smoking policy, room service/diet and guest tray routines, security routines, and visiting hours. Patient/Family are encouraged to report perceived risks to care and to ask questions if they do not understand what they are told or what they should do. See OBIX for further documentation.
[2022-05-15 20:56] LABS: Basophils Absolute Auto 0.1 K/mm3 (0.0-0.1); Basophils Percent Auto 0.7 % (0.2-1.2); Eosinophils Absolute Auto 0.1 K/mm3 (0-0.3); Eosinophils Percent Auto 1.3 % (0-4.4); Hematocrit 34.9 % (37.0-47.0); Hemoglobin 11.8 g/dL (12.0-15.0); Immature Granulocyte Absolute 0.13 K/mm3 (0.00-0.031); Immature Granulocyte Percent A 1.3 % (0-0.5); Lymphocytes Absolute Auto 2.08 K/mm3 (0.9-3.2); Lymphocytes Percent Auto 20.4 % (18.3-44.2); Mean Corpuscular HGB Conc 33.8 g/dl (32-36); Mean Corpuscular Hemoglobin 30.8 pg (26-34); Mean Corpuscular Volume 91.1 fl (80-100); Mean Platelet Volume 8.4 fl (7.4-10.4); Monocytes Absolute Auto 0.7 K/mm3 (0.1-0.6); Monocytes Percent Auto 6.4 % (2.6-8.5); Neutrophils Absolute Auto 7.1 K/mm3 (1.3-6.7); Neutrophils Percent Auto 69.9 % (45.5-73.1); Platelet Count Result 233 k/mm3 (150-375); Red Blood Count 3.83 M/mm3 (4.2-5.4); Red Cell Distribution Width 13.6 % (11.5-14.5); White Blood Count 10.2 K/mm3 (4.5-10.0)
[2022-05-15] MEDS: LACTATED RINGERS 1,000 ML 125 ML IV CONT ×2 (20:58→21:51)
--- NOTE | 2022-05-15 21:30 | WPDANESEPP ---
Anes - Eval Pre Procedure Procedure: labor epidural Date/Time: 05/15/22 21:30 Pre Op Diagnosis: SROM Patient Data Age: 32 Gender: F Height: 1.83 m Weight: 117 kg Last Vital Signs Temp 36.8 C 05/15/22 21:04 Pulse 89 05/15/22 21:04 Resp 16 05/15/22 21:04 BP 119/70 05/15/22 21:04 O2 Del Method Room Air 05/15/22 21:04 Allergies Allergy/AdvReac Type Severity Reaction Status Date / Time Penicillins Allergy Severe Swelling Verified 05/15/22 20:42 of Lip/Tongue/Throat Home Medications Medication Instructions Recorded Confirmed Type dextroamphetamine-amphetamine 20 20 mg PO DAILY 07/21/20 05/15/22 History mg tablet (Adderall) prenat.vits,jatinder,qlm-qlze-ivgsi 1 tablet PO DAILY 01/04/22 05/15/22 History docusate sodium 50 mg capsule 50 mg PO DAILY 04/29/22 05/15/22 History (Stool Softener) Laboratory Tests 05/15/22 05/15/22 20:48 20:48 WBC 10.2 K/mm3 H K/mm3 (4.5-10.0) RBC 3.83 M/mm3 L M/mm3 (4.2-5.4) Hgb 11.8 g/dL L g/dL (12.0-15.0) Hct 34.9 % L % (37.0-47.0) MCV 91.1 fl fl (80-100) MCH 30.8 pg pg (26-34) MCHC 33.8 g/dl g/dl (32-36) RDW 13.6 % % (11.5-14.5) Plt Count 233 k/mm3 k/mm3 (150-375) MPV 8.4 fl fl (7.4-10.4) Immature Gran % (Auto) 1.3 % H % (0-0.5) Neut % (Auto) 69.9 % % (45.5-73.1) Lymph % (Auto) 20.4 % % (18.3-44.2) [place] % (Auto) 6.4 % % (2.6-8.5) Eos % (Auto) 1.3 % % (0-4.4) Baso % (Auto) 0.7 % % (0.2-1.2) Lymph # (Auto) 2.08 K/mm3 K/mm3 (0.9-3.2) [place] # (Auto) 0.7 K/mm3 H K/mm3 (0.1-0.6) Eos # (Auto) 0.1 K/mm3 K/mm3 (0-0.3) Baso # (Auto) 0.1 K/mm3 K/mm3 (0.0-0.1) Abs Immat Gran (auto) 0.13 K/mm3 H K/mm3 (0.00-0.031) Absolute Neuts (auto) 7.1 K/mm3 H K/mm3 (1.3-6.7) Absolute Nucleated RBC 0.0 K/mm3 K/mm3 (0.0-0.012) Nucleated RBC % 0.0 % % (0.0-0.2) RPR Pending Patient hx anesthesia problems: none Family hx anesthesia problems: none Results Review: All pre-operative results and documents have been reviewed as part of the pre-operative evaluation. [facility] Past Medical History Medical History Abnormal uterine bleeding Crohn's disease Depression Renal disease Kidney stones Surgical History Surgical History Hx of laparoscopy Family History Family History Daughter Sickle-cell trait Son Sickle-cell trait Other Sickle-cell trait Other Patient denies significant medical history Social History Social History Smoking status: Former smoker Tobacco type: cigarettes Second hand tobacco smoke exposure: No Smoking end date: 04/23/21 Alcohol intake: current Substance use: never Gender identity (if verbalized by the patient): Female Spiritual care concerns: No Exam Day of Procedure 05/15/22 21:30 Patient weight: obese Heart: regular rate and rhythm Lungs: normal air movement Airway: Mallampati scale class II Neurological: alert and oriented
[2022-05-16] VITALS (24 sets, daily range): BP systolic 93–133; BP diastolic 46–76; PULSE 67–86; RESP 16–18; TEMP 36.3–36.8; O2SAT 96–100
[2022-05-16] MEDS: OXYTOCIN 30 UNITS/NS 500 ML 30 UNITS/500 ML BAG 999 UNITS IV CONT (03:06)
--- NOTE | 2022-05-16 03:18 | PM.IMHP ---
H&P: HPI History of Present Illness Date/Time: 05/16/22 03:18 Chief Complaint: Leaking of fluid Narrative: Pt is a 32 y/o at 38 weeks by LMP 08/22/21 EDC 05/29/22 consistent with a 6 week U/S She presented with c/o leaking of fluid, clear at 0730. Cervix 3cm, irregular contractions. PNC significant for ADHD. labs reviewed. GBS neg. Review of Systems Review of Systems: All systems reviewed & are unremarkable except as noted in HPI and below Constitutional: Constitutional: Reports no additional constitutional complaints and Denies headache(s) Eyes: Eyes: Denies spots in vision ENT: Reports system reviewed and no additional complaints, except as documented and Denies headache(s) Cardiovascular: Cardiovascular: Denies chest pain and Denies dyspnea Respiratory: Respiratory: Denies dyspnea Gastrointestinal: Gastrointestinal: Reports no additional gastrointestinal complaints Genitourinary: Genitourinary: Reports amenorrhea Musculoskeletal: Musculoskeletal: Reports no additional musculoskeletal complaints Integumentary/Breasts: Skin/Breast: Denies breast mass and Denies rash Neurologic: Denies headache(s) Psychiatric: Psychiatric: Reports no additional psychiatric complaints [facility] Past Medical History Medical History Abnormal uterine bleeding Crohn's disease Depression Renal disease Kidney stones Surgical History Surgical History Hx of laparoscopy Family History Family History Daughter Sickle-cell trait Son Sickle-cell trait Other Sickle-cell trait Other Patient denies significant medical history Social History Social History Smoking status: Former smoker Tobacco type: cigarettes Second hand tobacco smoke exposure: No Smoking end date: 04/23/21 Alcohol intake: current Substance use: never Gender identity (if verbalized by the patient): Female Spiritual care concerns: No Meds Home Medications and Allergies Home Medications Medication Instructions Recorded Confirmed Type dextroamphetamine-amphetamine 20 20 mg PO DAILY 07/21/20 05/15/22 History mg tablet (Adderall) prenat.vits,jatinder,zlb-ypzy-vwies 1 tablet PO DAILY 01/04/22 05/15/22 History docusate sodium 50 mg capsule 50 mg PO DAILY 04/29/22 05/15/22 History (Stool Softener) Allergies Allergy/AdvReac Type Severity Reaction Status Date / Time Penicillins Allergy Severe Swelling Verified 05/15/22 20:42 of Lip/Tongue/Throat Vital Signs Vital Signs - 24 hr 05/15/22 20:27 05/15/22 20:31 05/15/22 20:46 Temperature 98.3 F Pulse Rate 94 92 89 Respiratory Rate 16 Blood Pressure 125/74 120/67 119/70 Pulse Oximetry Oxygen Delivery 05/15/22 21:32 05/15/22 21:36 05/15/22 21:37 Temperature Pulse Rate 83 Respiratory Rate Blood Pressure 121/60 Pulse Oximetry 98 97 Oxygen Delivery 05/15/22 21:38 05/15/22 21:42 05/15/22 21:44 Temperature Pulse Rate 84 75 Respiratory Rate Blood Pressure 124/70 120/80 Pulse Oximetry 99 Oxygen Delivery 05/15/22 21:46 05/15/22 21:47 05/15/22 21:49 Temperature Pulse Rate 89 86 Respiratory Rate Blood Pressure 88/47 L 107/65 Pulse Oximetry 97 Oxygen Delivery 05/15/22 21:50 05/15/22 21:51 05/15/22 21:52 Temperature Pulse Rate 84 80 Respiratory Rate Blood Pressure 115/49 L 112/56 L Pulse Oximetry 96 Oxygen Delivery 05/15/22 21:53 05/15/22 21:55 05/15/22 21:57 Temperature Pulse Rate 84 79 Respiratory Rate Blood Pressure 101/45 L 115/58 L Pulse Oximetry 96 Oxygen Delivery 05/15/22 21:58 05/15/22 22:01 05/15/22 22:02 Temperature Pulse Rate 79 82 Respiratory Rate Blood Pressure 110/56 L 111/57 L Pulse Oximetry
--- NOTE | 2022-05-16 03:20 | P.PCNOB_ITS ---
OB - Delivery Note Procedure Delivery date: 05/16/22 Procedure: Spontaneous vaginal delivery Induction method: None Delivery monitor: External FHT Route of delivery: Laceration Description: None Specimen: No Quantitative Blood Loss (ml): 300 Anesthesia type: Epidural Disposition: Floor Complications: None Narrative: Patient admitted after confirmation of rupture of membranes. She progressed spontaneously to active labor. Epidural was initiated upon request. She was dilated to 9 and was feeling pressure. She was noted to be complete immediately prior to pushing. She pushed approximately three times and delivered a female over intact perineum. Infant's nose and mouth suctioned with bulb at perineum. Infant was placed on maternal abdomen. Vigorously crying. Cord gases and cord blood obtained. Placenta delivered spontaneously. Small area of outer edge of membranes appeared sheared off. There was some persistant mild bleeding. The lower uterine segment was cleared of small amount of membranes and bleeding decreased. Pitocin initiated No lacerations. EBL 300cc. Patient tolerated procedure well. [place] Baby Date of : 05/16/22 Time of : 03:02 Weeks of gestation at delivery: 38 gender: Female Weight (pounds): 7 Weight (ounces): 6 presentation: vertex position: Right Occiput Anterior Placenta delivery description: Spontaneous Cord Vessel Description: 3 Vessels score one minute: 8 score five minutes: 9 AMG Delivery Billing Delivery Delivery: Delivery Charge
[2022-05-16] MEDS: IBUPROFEN 600 MG TABLET PO ×4 (05:17→23:07)
[2022-05-16] MEDS: WITCH HAZEL 40 PADS 1 PAD TOPICAL (05:17)
[2022-05-16] MEDS: BENZOCAINE 20% AER SPR (*SP) 56 GM CAN 1 SPRAY TOPICAL (05:17)
--- NOTE | 2022-05-16 05:50 | PC.NURSE ---
Patient transferred to post room #284 via ( W/C ). Support person present. Oriented to unit, room, information board, rooming in, admission packet and security measures. Patient verbalizes understanding.
[2022-05-16 07:05] LABS: Rapid Plasma Reagin Non-Reactive (NonReactive)
--- NOTE | 2022-05-16 08:00 | PC.NURSE ---
PT introductions made and plan of care discussed per post , pain management, breast feeding, daily care activities. PT received such instructions per one to one discussion, mom baby care guide and demonstrations this shift. PT and spouse both recipients of such instructions and no barriers to learning identified at this time. PT verbalized understanding of such care.
[2022-05-16] MEDS: ACETAMINOPHEN 325 MG TABLET 650 MG PO ×2 (08:34→15:21)
[2022-05-16] MEDS: DOCUSATE SODIUM 100 MG CAPSULE PO ×2 (08:36→15:21)
[2022-05-16] MEDS: MULTIVIT/MIN/PREN/FOL AC/IRON TABLET 1 TAB PO (08:36)
[2022-05-16] MEDS: LANOLIN (LANSINOH) 7.5 GM CREAM 1 APPLIC TOPICAL (11:01)
--- NOTE | 2022-05-16 13:52 | PC.NURSE ---
Addendum entered by Hannah Kate RN 05/16/22 13:53: Mother voiced she is independently with no pain or discomfort. Original Note: Introductions were made, then consulted with patient to assess needs related to . Mother led the conversation with her?plans to feed?her and the?experience so far. Resources provided for inpatient and outpatient services using a resource guide and mom/baby guide. Mother voiced understanding of information and will call if there is a request for assistance. Reported to primary RN.
[2022-05-16] MEDS: HYDROcodone/acetaminophen (*CRX) 5-325 MG TABLET 1 TAB PO ×2 (18:19→23:07)
[2022-05-17 04:44] LABS: Hematocrit 31.3 % (37.0-47.0); Hemoglobin 10.5 g/dL (12.0-15.0)
[2022-05-17] MEDS: IBUPROFEN 600 MG TABLET PO (07:23)
[2022-05-17] MEDS: HYDROcodone/acetaminophen (*CRX) 5-325 MG TABLET 1 TAB PO (07:23)
[2022-05-17] MEDS: MULTIVIT/MIN/PREN/FOL AC/IRON TABLET 1 TAB PO (07:23)
[2022-05-17] MEDS: DOCUSATE SODIUM 100 MG CAPSULE PO (07:23)
--- NOTE | 2022-05-17 08:19 | P.PNOB_ITS ---
OB - PN: Subj Subjective Date/time seen: 05/17/22 08:19 Patient comments: pain well controlled (with [place]), tolerating diet and other (Decreasing lochia.) [place] baby status: doing well and nursing well feeding status: exclusively breast feeding Narrative: She was having significant uterine cramping with , helped with [place]. OB - PN: Obj Data Labs CBC & Chem 7: 05/17/22 03:57 Labs: Laboratory Results - last 24 hr 05/17/22 03:57 Hgb 10.5 L Hct 31.3 L OB - PN A/P Plan day: 1 Plan: routine care and discharge home Comments: Patient doing well. Discharge precautions discussed. Follow up in four weeks. Time Spent With Patient Time: Total time spent is greater than 50% in coordination of care (as documented) at patient's floor/unit and/or counseling patient: Exam Psych: Affect: normal affect Other: Abd: fundus firm below umbilicus, nontender Perineum: healing Ext: nontender
[2022-05-17 08:30] VITALS: BP 116/62; PULSE 70; RESP 16; TEMP 36.4; O2SAT 100
--- NOTE | 2022-05-17 10:08 | PC.NURSE ---
[phone] Mother led the conversation with her experience and demonstrates her ability to independently latch optimally without discomfort effectively on the right breast using a cross cradle position. Reminded parents to use good handwashing technique to prevent infection. Mother is feeding appropriately for growth of and understands stimulating to eat if needed. Infant has had adequate (8 feedings from [id number]) feedings in the last 24 hours meets the outcomes for weight, output and jaundice at this time. Encouraged mother to watch for her infant to demonstrate feeding cues and attempt to feed her 8-12 times in a 24 hour period. Mother states she is confident to continue effectively breastfeed her infant at home or when to call for assistance and denies any additional assistance or education at this time. Reinforced understanding of milk production, transition of milk, signs of adequate intake, prevention/relief of engorgement, responsive after visualizing feeding cues, the different methods of stimulating to breastfeed 2-3 hours after the start of the last feeding, community resources, medication information reviewed per [employer] and when to call a provider using the resource of the mom and baby guide/[facility] website. Mother voiced understanding of the education shared. Reported to the primary RN.
--- NOTE | 2022-06-15 12:53 | PM.OBDSVD ---
DS: Admitting Diagnosis Discharge Date 05/17/22 Admitting Diagnosis Spontaneous rupture of membranes DS: Discharge Diagnosis Discharge Diagnosis Plan Delivered OB - DS: Summary Hospital Course Hospital Course: Patient admitted for SROM. She progressed into active labor. She had an uncomplicated vaginal delivery. She did well . Baby did well . She was discharged to home with instructions. OB Procedures : Ultrasound OB Procedures Intrapartum: Spontaneous Vag Delivery OB Procedures: : None Peripartum Data Infant Delivery Method: Natural Vaginal complications: none Status at Discharge Functional status at discharge: independent ambulation Time Spent with Patient Time attestation: Total time spent providing and/or coordinating discharge services: Exam Const: General: cooperative Orientation/consciousness: oriented to person, oriented to place and oriented to time HENMT: Face/Nose/Sinus: Normal external nose present Eyes: General: appearance normal, both eyes and all related structures Resp: Effort & Inspection: normal respiratory effort GI: Inspection: normal to inspection Skin: General skin exam: normal color Neuro: General: oriented to person, oriented to place and oriented to time Extrem: General: normal to inspection and no calf tenderness Psych: Appearance: grossly normal Mental Status: mental status grossly normal Discharge Plan Discharge Attending physician on discharge: Altaf Breen Consulting providers: Clemencia Costa Discharging Clinician: Altaf Breen Anticipated Discharge Date/Time: 05/17/22 08:22 Patient Disposition: Home, Self-Care Activity: may shower and pelvic rest Diet: regular Discharge Instructions: Pelvic rest for 4-6 weeks. May take over the counter Ibuprofen or Tylenol for pain. Call if saturating more than a pad an hour, leg redness, pain and swelling, temperature>100.4. No strenuous activity. Education: Mom and Baby Guide Given to: Mother Follow-Up: Call your delivering provider's office for an appointment to be seen in: 4 Weeks [facility] follow[facility]. Appointment Date/Time: May 18, 2022 at 10:00 am What to expect at your follow-up visit: Blood Pressure Check Physical Assessment Call [phone] if you are unable to keep your appointment time. BREAST CARE: * Wear a snug supportive bra. * For engorgement discomfort: Breast Feeding: * Apply warm moist washcloths * Express milk as needed to relieve engorgement * Wear loose clothing Bottle Feeding: * May apply ice packs * For sore nipples: * Identify correct latch-on * Apply warm moist washcloths before and after nursing * Air dry nipples after nursing * May apply Lansinoh cream to nipples EPISIOTOMY/PERINEAL CARE: * Until bleeding stops, use your jeremy bottle after urinating * Change your pad frequently throughout the day * You may take sitz baths several times a day (fill your bathtub with warm water and soak for 20 minutes.) Do NOT bathe in the water * No tub baths until seen by your physician - You may shower ACTIVITY: * Rest as much as possible. * Do not exercise or lift anything heavier than your baby (such as laundry or other children.) * Avoid stairs or driving as much as possible. * Do not put anything into the vagina. No douching, tampons, or sexual activity until seen by physician. NOTIFY PHYSICIAN IF YOU HAVE ANY QUESTIONS OR IF ANY OF THE FOLLOWING SYMPTOMS OCCUR: * If your episiotomy or incision becomes red, swollen, or more painful than what you have experienced in the hospital. * If your vaginal bleeding becomes foul smelling. * If your vaginal bleeding becomes more heavy than a period or if your bleeding changes from pink to bright red. H
== END 2022-05-17 12:04 | disposition home or self-care (01) | DRG 560 ==
LOC: ANHLDR 20:39 → ANHOB2 05-16 06:13
PROVIDERS: Admitting Provider Obstetrics & Gynecology; PCP Nurse Practitioner Family; Visit Provider Obstetrics & Gynecology
DX: O99.62 Diseases of the digestive system complicating childbirth (principal); K50.90 Crohn's disease, unspecified, without complications; F32.A Depression, unspecified; O99.344 Other mental disorders complicating childbirth; O76 Abnormality in fetal heart rate and rhythm complicating labor and delivery; O69.81X0 Labor and delivery complicated by cord around neck, without compression, not applicable or unspecified; Z3A.38 38 weeks gestation of pregnancy; Z37.0 Single live birth; Z23 Encounter for immunization
CPT/HCPCS: 36415; 85014; 85018; 85025; 86592; 86850; 86900; 86901; 90471; 90686; A9270; G0008; J2590; J2795; J7120

== ENCOUNTER 2023-08-21 16:44 | Outpatient (CLI) | payer OTHER, SELFPAY ==
[2023-08-25 06:07] LABS: Progesterone 11.6 ng/mL (***)
== END 2023-08-21 16:45 | disposition home or self-care (01) ==
LOC: ANHLAB 16:45
PROVIDERS: PCP Nurse Practitioner Family; Visit Provider Obstetrics & Gynecology
DX: N96 Recurrent pregnancy loss (principal)
CPT/HCPCS: 36415; 84144; 84702

== ENCOUNTER 2023-08-23 08:17 | Outpatient (CLI) | payer OTHER, SELFPAY | END 2023-08-23 08:18 | disposition home or self-care (01) | LOC: ANHLAB 08:18 | PROVIDERS: PCP Nurse Practitioner Family; Visit Provider Obstetrics & Gynecology | DX: N96 Recurrent pregnancy loss (principal) | CPT/HCPCS: 36415; 84702 ==

== ENCOUNTER 2023-09-27 12:42 | Outpatient (CLI) | payer OTHER, SELFPAY ==
--- NOTE | ~2023-09-27 | US_ITS ---
CORRECTED REPORT corrected exam description [facility] 09/28/23 This report was recreated on 09/28/23. 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 TECHNIQUE: Real-time pelvic ultrasound utilizing both a transvaginal and transabdominal probe was performed. The interpreting radiologist was not present for the study. COMPARISON: None. FINDINGS: The uterus measures 13.1 x 7.2 x 9.7 cm. There is an intrauterine gestational sac. A yolk sac and pole are identified. The crown rump length measures 3.7 cm, which correlates with an estimated gestational age of 10 weeks and 4 days. heart motion is identified measuring 171 beats per minute (bpm) by M-mode Doppler. The bilateral ovaries are not visualized. There is no free fluid in the pelvis. IMPRESSION: 1. Single living fetus with heart rate of 171 bpm. 2. Gestational age by ultrasound of 10 weeks 4 day(s) +/- 7 day(s) with ultrasound estimated date of delivery (LACY) of 04/20/2024. Reviewed, dictated and finalized at location A. [employer] EDUCATION TEACHER MTDD IMPRESSION: 1. Single living fetus with heart rate of 171 bpm. 2. Gestational age by ultrasound of 10 weeks 4 day(s) +/- 7 day(s) with ultras ound estimated date of delivery (LACY) of 04/20/2024.
== END 2023-09-27 12:43 | disposition home or self-care (01) ==
LOC: ANHIMG 12:43
PROVIDERS: PCP Nurse Practitioner Family; Visit Provider Nurse Practitioner Family
DX: O36.80X0 Pregnancy with inconclusive fetal viability, not applicable or unspecified (principal); Z3A.00 Weeks of gestation of pregnancy not specified
CPT/HCPCS: 76801; 76817

== ENCOUNTER 2024-01-29 15:02 | Outpatient (CLI) | payer OTHER, SELFPAY ==
[2024-01-29 16:22] LABS: Hematocrit 36.9 % (37.0-47.0); Hemoglobin 12.6 g/dL (12.0-15.0); Mean Corpuscular HGB Conc 34.1 g/dl (32-36); Mean Corpuscular Hemoglobin 31.2 pg (26-34); Mean Corpuscular Volume 91.3 fl (80-100); Mean Platelet Volume 8.6 fl (7.4-10.4); Platelet Count Result 244 k/mm3 (150-375); Red Blood Count 4.04 M/mm3 (4.2-5.4); White Blood Count 8.7 K/mm3 (4.5-10.0)
[2024-01-29 16:32] LABS: Glucose 1 Hour PP 50gm Dose 100 mg/dL
== END 2024-01-29 15:03 | disposition home or self-care (01) ==
LOC: ANHLAB 15:03
PROVIDERS: PCP Nurse Practitioner Family; Visit Provider Obstetrics & Gynecology
DX: Z34.90 Encounter for supervision of normal pregnancy, unspecified, unspecified trimester (principal)
CPT/HCPCS: 36415; 82947; 85027

== ENCOUNTER 2024-02-22 14:56 | Outpatient (CLI) | payer OTHER, SELFPAY ==
[2024-02-22 15:21] LABS: Basophils Absolute Auto 0.1 K/mm3 (0.0-0.1); Basophils Percent Auto 0.8 % (0.2-1.2); Eosinophils Absolute Auto 0.1 K/mm3 (0-0.3); Eosinophils Percent Auto 1.4 % (0-4.4); Hematocrit 35.9 % (37.0-47.0); Hemoglobin 12.5 g/dL (12.0-15.0); Immature Granulocyte Absolute 0.09 K/mm3 (0.00-0.031); Immature Granulocyte Percent A 1.2 % (0-0.5); Lymphocytes Absolute Auto 1.98 K/mm3 (0.9-3.2); Lymphocytes Percent Auto 27.2 % (18.3-44.2); Mean Corpuscular HGB Conc 34.8 g/dl (32-36); Mean Corpuscular Volume 89.1 fl (80-100); Mean Platelet Volume 8.7 fl (7.4-10.4); Monocytes Absolute Auto 0.5 K/mm3 (0.1-0.6); Monocytes Percent Auto 6.9 % (2.6-8.5); Neutrophils Absolute Auto 4.6 K/mm3 (1.3-6.7); Neutrophils Percent Auto 62.5 % (45.5-73.1); Platelet Count Result 242 k/mm3 (150-375); Red Blood Count 4.03 M/mm3 (4.2-5.4); Red Cell Distribution Width 13.2 % (11.5-14.5); White Blood Count 7.3 K/mm3 (4.5-10.0)
[2024-02-22 17:16] LABS: HIV 1/2 Ab P24 Ag Result Negative (Negative)
[2024-02-23 11:18] LABS: Rapid Plasma Reagin Non-Reactive (NonReactive)
== END 2024-02-22 14:57 | disposition home or self-care (01) ==
LOC: ANHLAB 14:57
PROVIDERS: PCP Nurse Practitioner Family; Visit Provider Nurse Practitioner Family
DX: Z34.93 Encounter for supervision of normal pregnancy, unspecified, third trimester (principal); Z3A.00 Weeks of gestation of pregnancy not specified
CPT/HCPCS: 36415; 85025; 86592; 86703; G0432

== ENCOUNTER 2024-04-18 05:59 | Inpatient (IN) | payer OTHER, SELFPAY ==
[2024-04-18] VITALS (68 sets, daily range): BP systolic 57–141; BP diastolic 38–95; PULSE 61–90; RESP 16–18; TEMP 36.1–37.4; O2SAT 92–100; BMI 36.4
[2024-04-18 06:40] LABS: Basophils Absolute Auto 0.1 K/mm3 (0.0-0.1); Basophils Percent Auto 1.1 % (0.2-1.2); Eosinophils Absolute Auto 0.1 K/mm3 (0-0.3); Eosinophils Percent Auto 1.8 % (0-4.4); Hematocrit 35.2 % (37.0-47.0); Hemoglobin 12.1 g/dL (12.0-15.0); Immature Granulocyte Absolute 0.14 K/mm3 (0.00-0.031); Lymphocytes Absolute Auto 1.75 K/mm3 (0.9-3.2); Lymphocytes Percent Auto 24.4 % (18.3-44.2); Mean Corpuscular HGB Conc 34.4 g/dl (32-36); Mean Corpuscular Hemoglobin 31.4 pg (26-34); Mean Corpuscular Volume 91.4 fl (80-100); Mean Platelet Volume 8.9 fl (7.4-10.4); Monocytes Absolute Auto 0.6 K/mm3 (0.1-0.6); Monocytes Percent Auto 7.8 % (2.6-8.5); Neutrophils Absolute Auto 4.5 K/mm3 (1.3-6.7); Neutrophils Percent Auto 62.9 % (45.5-73.1); Platelet Count Result 259 k/mm3 (150-375); Red Blood Count 3.85 M/mm3 (4.2-5.4); Red Cell Distribution Width 13.8 % (11.5-14.5); White Blood Count 7.2 K/mm3 (4.5-10.0)
--- NOTE | 2024-04-18 06:42 | LDADM ---
This patient, Carline Florentino, was admitted to Labor/Delivery/Recovery 103 on 04/18/24 at 05:59. Plans for labor, pain management and were discussed with patient. Patient/family oriented to hospital policies and general routines including ID bracelet, bed and alarms, visiting hours, pain management, procedures, bathroom and other care routines, personal items, smoking policy, room service/diet and guest tray routines, security routines, and visiting hours. Patient/Family are encouraged to report perceived risks to care and to ask questions if they do not understand what they are told or what they should do. See OBIX for further documentation.
[2024-04-18] MEDS: OXYTOCIN 30 UNITS/NS 500 ML 30 UNITS/500 ML BAG IV CONT (06:46)
[2024-04-18] MEDS: LACTATED RINGERS 1,000 ML 125 ML IV CONT ×2 (06:46→11:24)
[2024-04-18 07:30] LABS: HIV 1/2 Ab P24 Ag Result Negative (Negative)
--- NOTE | 2024-04-18 07:54 | PM.IMHP ---
H&P: HPI History of Present Illness Date/Time: 04/18/24 07:54 Chief Complaint: Induction of labor Narrative: Patient at 39 weeks admitted for medical induction of labor social. course uncomplicated. Review of Systems Review of Systems: All systems reviewed & are unremarkable except as noted in HPI and below Constitutional: Constitutional: Reports no additional constitutional complaints and Denies headache(s) Eyes: Eyes: Denies spots in vision ENT: Reports system reviewed and no additional complaints, except as documented and Denies headache(s) Cardiovascular: Cardiovascular: Denies chest pain and Denies dyspnea Respiratory: Respiratory: Denies dyspnea Gastrointestinal: Gastrointestinal: Reports no additional gastrointestinal complaints Genitourinary: Genitourinary: Reports amenorrhea Musculoskeletal: Musculoskeletal: Reports no additional musculoskeletal complaints Integumentary/Breasts: Skin/Breast: Denies breast mass and Denies rash Neurologic: Denies headache(s) Psychiatric: Psychiatric: Reports no additional psychiatric complaints PMFSH Past Medical History Medical History Abnormal uterine bleeding Crohn's disease Depression Obesity and not yet delivered Renal disease Kidney stones Surgical History Surgical History Hx of laparoscopy Family History Family History Daughter Sickle-cell trait Son Sickle-cell trait Other Sickle-cell trait Other Patient denies significant medical history Social History Social History Smoking status: Former smoker Tobacco type: cigarettes Second hand tobacco smoke exposure: No Smoking end date: 04/23/21 Alcohol intake: current Substance use: never Do You Feel Safe in your Home?: Yes Lack of Transportation: No Lack of Food: Never True Current Housing: I Have Housing Concerned About Future Housing: No Difficulty Paying Gas/Electric Bills: No Difficulty Paying for Meds: No Currently Unemployed: No Education: Associate Degree Difficulty w/ Childcare or Family Care: No Gender identity (if verbalized by the patient): Female Spiritual care concerns: No Meds Home Medications and Allergies Home Medications Medication Instructions Recorded Confirmed Type dextroamphetamine-amphetamine 20 20 mg PO DAILY 07/21/20 04/18/24 History mg tablet (Adderall) prenat.vits,jatinder,fsr-avna-hnehv 1 tablet PO DAILY 01/04/22 04/18/24 History Allergies Allergy/AdvReac Type Severity Reaction Status Date / Time Penicillins Allergy Severe Swelling Verified 04/11/24 14:53 of Lip/Tongue/Throat Vital Signs Vital Signs - 24 hr 04/18/24 06:40 04/18/24 07:01 04/18/24 07:15 Temperature 98.4 F Pulse Rate 78 81 81 Respiratory Rate 16 Blood Pressure 122/69 111/59 L 123/66 Oxygen Delivery 04/18/24 07:31 04/18/24 06:41 04/18/24 06:41 Temperature Pulse Rate 78 78 Respiratory Rate Blood Pressure 120/65 122/69 Oxygen Delivery Room Air Exam Const: General: no acute distress Eyes: General: appearance normal, both eyes and all related structures Resp: Effort & Inspection: normal respiratory effort Cardio: Rate: regular rate GI: Other: Gravid no fundal tenderness no right upper quadrant pain Skin: General skin exam: no rashes or lesions noted Neuro: Cognition (Neuro): normal cognition Extrem: General: normal to inspection Psych: Mental Status: mental status grossly normal H&P: Results Labs Labs: Short CBC 04/18/24 Range/Units 06:15 WBC 7.2 (4.5-10.0) K/mm3 Hgb 12.1 (12.0-15.0) g/dL Hct 35.2 L (37.0-47.0) % Plt Count 259 (150-375) k/mm3 Assessment and Plan Assessment and plan (1) Elective induct
--- NOTE | 2024-04-18 07:54 | PM.OBPNVD ---
OB - PN: Subj Subjective Date/time seen: 04/18/24 07:54 Interval history: fht 135, cat 1, AROM clear, /-2. Continue Pitocin. OB - PN: Obj Data Labs 04/18/24 06:15 Labs: Laboratory Results - last 24 hr 04/18/24 06:15 WBC 7.2 RBC 3.85 L Hgb 12.1 Hct 35.2 L MCV 91.4 MCH 31.4 MCHC 34.4 RDW 13.8 Plt Count 259 MPV 8.9 Immature Gran % (Auto) 2.0 H Neut % (Auto) 62.9 Lymph % (Auto) 24.4 [place] % (Auto) 7.8 Eos % (Auto) 1.8 Baso % (Auto) 1.1 Lymph # (Auto) 1.75 [place] # (Auto) 0.6 Eos # (Auto) 0.1 Baso # (Auto) 0.1 Abs Immat Gran (auto) 0.14 H Absolute Neuts (auto) 4.5 Absolute Nucleated RBC 0.000 Nucleated RBC % 0.0 HIV 1&2 Ab/P24 Ag 4thGn Negative Blood Type A Positive Antibody Screen Negative OB - PN A/P Time Spent With Patient Time: Total time spent is greater than 50% in coordination of care (as documented) at patient's floor/unit and/or counseling patient:
[2024-04-18 08:13] LABS: Rapid Plasma Reagin Non-Reactive (NonReactive)
--- NOTE | 2024-04-18 08:33 | WPDANESEPP ---
Anes - Eval Pre Procedure Procedure: Labor epidural Date/Time: 04/18/24 08:33 Surgeon: Jamshid Preop Diagnosis: Abdominal pain with contractions Pre Op Diagnosis: IOL Patient Data Age: 34 Gender: F Height: 1.83 m Weight: 122 kg Last Vital Signs Temp 98.4 F 04/18/24 06:40 Pulse 78 04/18/24 07:31 Resp 16 04/18/24 06:40 BP 120/65 04/18/24 07:31 O2 Del Method Room Air 04/18/24 06:41 Allergies Allergy/AdvReac Type Severity Reaction Status Date / Time Penicillins Allergy Severe Swelling Verified 04/11/24 14:53 of Lip/Tongue/Throat Home Medications Medication Instructions Recorded Confirmed Type dextroamphetamine-amphetamine 20 20 mg PO DAILY 07/21/20 04/18/24 History mg tablet (Adderall) prenat.vits,jatinder,hvn-raum-izcfw 1 tablet PO DAILY 01/04/22 04/18/24 History Laboratory Tests 04/18/24 06:15 WBC 7.2 K/mm3 (4.5-10.0) RBC 3.85 L M/mm3 (4.2-5.4) Hgb 12.1 g/dL (12.0-15.0) Hct 35.2 L % (37.0-47.0) MCV 91.4 fl (80-100) MCH 31.4 pg (26-34) MCHC 34.4 g/dl (32-36) RDW 13.8 % (11.5-14.5) Plt Count 259 k/mm3 (150-375) MPV 8.9 fl (7.4-10.4) Immature Gran % (Auto) 2.0 H % (0-0.5) Neut % (Auto) 62.9 % (45.5-73.1) Lymph % (Auto) 24.4 % (18.3-44.2) [place] % (Auto) 7.8 % (2.6-8.5) Eos % (Auto) 1.8 % (0-4.4) Baso % (Auto) 1.1 % (0.2-1.2) Lymph # (Auto) 1.75 K/mm3 (0.9-3.2) [place] # (Auto) 0.6 K/mm3 (0.1-0.6) Eos # (Auto) 0.1 K/mm3 (0-0.3) Baso # (Auto) 0.1 K/mm3 (0.0-0.1) Abs Immat Gran (auto) 0.14 H K/mm3 (0.00-0.031) Absolute Neuts (auto) 4.5 K/mm3 (1.3-6.7) Absolute Nucleated RBC 0.000 K/mm3 (0.0-0.012) Nucleated RBC % 0.0 % (0.0-0.2) RPR Non-reactive (NonReactive) HIV 1&2 Ab/P24 Ag 4thGn Negative (Negative) Blood Type A Positive Antibody Screen Negative : gestational age HCG: positive Patient hx anesthesia problems: none Family hx anesthesia problems: none Results Review: All pre-operative results and documents have been reviewed as part of the pre-operative evaluation. [facility] Past Medical History Medical History (Updated 04/18/24 @ 08:35 by Javi Zuniga Jr., CRNA) Abnormal uterine bleeding Crohn's disease Depression Obesity and not yet delivered Renal disease Kidney stones Surgical History Surgical History Hx of laparoscopy Family History Family History Daughter Sickle-cell trait Son Sickle-cell trait Other Sickle-cell trait Other Patient denies significant medical history Social History Social History Smoking status: Former smoker Tobacco type: cigarettes Second hand tobacco smoke exposure: No Smoking end date: 04/23/21 Alcohol intake: current Substance use: never Do You Feel Safe in your Home?: Yes Lack of Transportation: No Lack of Food: Never True Current Housing: I Have Housing Concerned About Future Housing: No Difficulty Paying Gas/Electric Bills: No Difficulty Paying for Meds: No Currently Unemployed: No Education: Associate Degree Difficulty w/ Childcare or Family Care: No Gender identity (if verbalized by the patient): Female Spiritual care concerns: No Exam Day of Procedure 04/18/24 08:33 Patient weight: obese Airway: Mallampati scale class II
[2024-04-18] MEDS: OXYTOCIN 30 UNITS/NS 500 ML 30 UNITS/500 ML BAG 125 UNITS IV CONT (14:10)
--- NOTE | 2024-04-18 15:45 | PM.OBPRVD ---
OB - Vaginal Delivery Note Procedure Delivery date: 04/18/24 Induction method: Per Pitocin Protocol Delivery augmentation: Rupture of Membranes Delivery monitor: External FHT Route of delivery: Episiotomy description: None Laceration Description: Vaginal ( First degree at introitus) Delivery repair: vicryl ( 3-0 Vicryl) Specimen: No Quantitative Blood Loss (ml): 150 Anesthesia type: Epidural Disposition: Floor Complications: No immediate complications Narrative: she was admitted for medical induction of labor. She has been informed of risks benefits of induction of labor versus spontaneous labor and agreed with induction of labor. Pitocin was started the morning of 04/18/2024. She then had assisted rupture of membranes clear. She continued to progress in active labor. She dilated to complete and delivered a female infant there was a compound right hand presentation. A loose nuchal cord was manually reduced after the nose and mouth were suctioned with the bulb. Infant was placed on maternal abdomen after delivery of the anterior shoulder and the rest of the baby. Infant was vigorously crying. Delayed cord clamping for 1 minute. Pitocin was started. Placenta delivered spontaneously and intact. There is a small laceration at the introitus which a bpwtfz-[id number]-ivtda stitch of 3-0 Vicryl was used for hemostasis. Hemostasis noted. Patient tolerated procedure well. Baby Time of : 13:35 Gestational Age by Date: 39 gender: Female Weight (pounds): 8 Weight (ounces): 10 presentation: vertex position: Right Occiput Anterior Placenta delivery description: Spontaneous Cord Vessel Description: 3 Vessels, Nuchal Cord and Loose score one minute: 9 score five minutes: 9
[2024-04-18] MEDS: IBUPROFEN 600 MG TABLET PO (22:15)
[2024-04-18] MEDS: ACETAMINOPHEN 325 MG TABLET 650 MG PO (23:45)
[2024-04-19] MEDS: IBUPROFEN 600 MG TABLET PO ×2 (03:48→10:24)
[2024-04-19 03:49] VITALS: BP 120/57; PULSE 71; RESP 20; TEMP 36.1; O2SAT 99
[2024-04-19 04:38] LABS: Hematocrit 32.6 % (37.0-47.0); Hemoglobin 11.2 g/dL (12.0-15.0)
[2024-04-19] MEDS: ACETAMINOPHEN 325 MG TABLET 650 MG PO (07:41)
[2024-04-19] MEDS: LANOLIN (LANSINOH) 7.5 GM CREAM 1 APPLIC TOPICAL (07:42)
[2024-04-19 08:00] VITALS: BP 119/46; PULSE 69; RESP 16; TEMP 36.4; O2SAT 98
--- NOTE | 2024-04-19 08:06 | PC.NURSE ---
Patient viewed the discharge video Mother & Baby Care, The First Two Weeks . Patient was given the opportunity and encouraged to ask questions. Patient verbalized understanding of information shared and has been given the mother/baby guide for home reference.
--- NOTE | 2024-04-19 09:49 | P.PNOB_ITS ---
OB - PN: Subj Subjective Date/time seen: 04/19/24 09:49 Patient comments: no complaints baby status: doing well [place] feeding status: breast and bottle feeding OB - PN: Obj Data Labs 04/19/24 03:41 Labs: Laboratory Results - last 24 hr 04/19/24 03:41 Hgb 11.2 L Hct 32.6 L OB - PN A/P Plan Plan: routine care and discharge home Comments: pt requests discharge today. Discharge precautions reviewed. Time Spent With Patient Time: Total time spent is greater than 50% in coordination of care (as documented) at patient's floor/unit and/or counseling patient: Exam Const: General: cooperative, healthy appearing and comfortable Resp: Effort & Inspection: normal respiratory effort and able to speak in complete sentences : Bimanual exam- vagina & uterus: non-tender Other: uterus non tender, firm and 2 below umbilicus.
--- NOTE | 2024-04-19 09:53 | PM.OBDSVD ---
DS: Admitting Diagnosis Discharge Date 04/19/2024 <Diana CelestinLIMA grant - Last Filed: 04/19/24 11:23> 04/19/24 <Altaf Breen MD - Last Filed: 04/30/24 21:33> Admitting Diagnosis IOL <Diana BolañosLIMA - Last Filed: 04/19/24 11:23> OB - DS: Summary OB Procedures : Ultrasound <Diana CelestinLIMA grant - Last Filed: 04/19/24 11:23> OB Procedures Intrapartum: Spontaneous Vag Delivery <Diana CelestinLIMA grant - Last Filed: 04/19/24 11:23> OB Procedures: : None <Diana BolañosLIMA - Last Filed: 04/19/24 11:23> Peripartum Data Laceration Description: Vaginal ( First degree at introitus) <Diana BanguraLIMA philip - Last Filed: 04/19/24 11:23> Episiotomy description: None <Diana CelestinLIMA grant - Last Filed: 04/19/24 11:23> complications: none <Diana CelestinLIMA grant - Last Filed: 04/19/24 11:23> Time Spent with Patient Time attestation: Total time spent providing and/or coordinating discharge services: <Diana CelestinLIMA grant - Last Filed: 04/19/24 11:23> Exam Resp: Effort & Inspection: normal respiratory effort and able to speak in complete sentences <Diana CelestinLIMA grant - Last Filed: 04/19/24 11:23> Cardio: Rate: regular rate <Diana BanguraLIMA philip - Last Filed: 04/19/24 11:23> : External Female Exam: normal external appearance <Diana BanguraLIMA philip - Last Filed: 04/19/24 11:23> Other: uterus firm, 1 below umbilicus. non tender <Diana Rice LIMA Bolaños - Last Filed: 04/19/24 11:23> Skin: General skin exam: normal color <Diana Rice LIMA Bolaños - Last Filed: 04/19/24 11:23> Neuro: General: oriented to person, oriented to place and oriented to time <Diana Rice LIMA Bolaños - Last Filed: 04/19/24 11:23> Extrem: General: normal to inspection, capillary refill normal and no calf tenderness <Diana Rice LIMA Bolaños - Last Filed: 04/19/24 11:23> DS: Data Data Completed and Pending Labs on day of discharge: Labs from last 24 hours 04/19/24 03:41 Hgb 11.2 L Hct 32.6 L <Diana Rice LIMA Bolaños - Last Filed: 04/19/24 11:23> Discharge Plan Discharge Attending physician on discharge: Altaf Breen <Diana CaityEdinson Bolaños APRN - Last Filed: 04/19/24 11:23> Altaf Breen <Altaf Breen MD - Last Filed: 04/30/24 21:33> Consulting providers: Javi Zuniga Jr.; Diana Bolaños; Clemencia Zavala <Diana CaityEdinson Bolaños APRN - Last Filed: 04/19/24 11:23> Discharging Clinician: Altaf Breen <Diana Bolaños APRN - Last Filed: 04/19/24 11:23> Altaf Breen <Altaf Breen MD - Last Filed: 04/30/24 21:33> Anticipated Discharge Date/Time: 04/19/24 09:55 <Diana CarolinaEdinson Bolaños APRN - Last Filed: 04/19/24 11:23> Patient Disposition: Home, Self-Care <Diana CarolinaEdinson Bolaños APRN - Last Filed: 04/19/24 11:23> Activity: may shower and pelvic rest <Diana Bolaños APRN - Last Filed: 04/19/24 11:23> may shower and pelvic rest <Altaf Breen MD - Last Filed: 04/30/24 21:33> Diet: regular <Diana Bolaños APRN - Last Filed: 04/19/24 11:23> regular <Altaf Breen MD - Last Filed: 04/30/24 21:33> Discharge Instructions: Education: Mom and Baby Guide Given to: Mother Follow-Up: Call your delivering provider's office for an appointment to be seen in: 4 Weeks Mom and baby should come to the [facility] for the follow-up appointment. Appointment Date/Time: April 20, 2024 at 2:30 pm What to expect at your follow-up visit: Physical Assessment Call [phone] if you are unable to keep your appointment time. BREAST CARE: * Wear a snug supportive bra. * For engorgement discomfort: Breast Feeding: * Apply warm moist washcloths * Express milk as needed to relieve engorgement *
--- NOTE | 2024-04-19 10:00 | PC.NURSE ---
Breast pump provided due to maternal request. Instructions given on cleaning, care, usage, that there should be no pain, pumping schedule for milk production, collection, and storage of human milk. Patient was assessed for correct placement, flange size, to pump for comfort and nipple stretching/stimulation for adequate milk production every 3 hours (8 times in 24 hours) 1-2 times at night. Mother is currently using a size 24mm flange. Mother encouraged to record the pumping schedule on the feeding sheet.?Mother voiced understanding of the education shared along with mom/baby guide and the pump measurement, flange fit handout for additional resource information. Reported to the Primary RN.
--- NOTE | 2024-04-19 10:36 | WPDANLDPN2 ---
Anes-Prog Note L&D Date/Time: 04/19/24 10:36 Comfortable throughout: labor and delivery Neuraxial method: epidural Epidural/Spinal procedure site: clean & non-tender Neuro status: Neuro function grossly intact. Cardiovascular status: normal Respiratory status: normal Airway patency: baseline Mental status: baseline Post-Op hydration status: normal Vital Signs: Last Vital Signs Temp 36.4 C 04/19/24 08:00 Pulse 69 04/19/24 08:00 Resp 16 04/19/24 08:00 BP 119/46 L 04/19/24 08:00 Pulse Ox 98 04/19/24 08:00 O2 Del Method Room Air 04/18/24 19:08 Pain score (VAS): 0/10 I/O: Intake & Output 04/18/24 04/19/24 04/19/24 23:59 07:59 15:59 Intake Total 240 Balance 240 Post-procedural complaints: none Patient feedback: Patient satisfied with anesthetic care.
[2024-04-19 12:29] VITALS: BP 116/65; PULSE 71; RESP 16; TEMP 36.4; O2SAT 97
== END 2024-04-19 15:22 | disposition home or self-care (01) | DRG 560 ==
LOC: ANHLDR 06:01 → ANHOB2 16:47
PROVIDERS: Admitting Provider Obstetrics & Gynecology; PCP Nurse Practitioner Family; Visit Provider Obstetrics & Gynecology
DX: O69.81X0 Labor and delivery complicated by cord around neck, without compression, not applicable or unspecified (principal); Z37.0 Single live birth; Z3A.39 39 weeks gestation of pregnancy; O70.0 First degree perineal laceration during delivery
CPT/HCPCS: 36415; 85014; 85018; 85025; 86592; 86703; 86850; 86900; 86901; A9270; G0432; J2590; J2795; J7120

== ENCOUNTER 2024-04-19 20:41 | Observation (INO) | payer OTHER, SELFPAY ==
--- NOTE | ~2024-04-19 | US_ITS ---
EXAMINATION: US pelvic complete DATE: 04/19/2024 21:45 INDICATION: bleeding. TECHNIQUE: Multiple transabdominal sonographic images of the pelvis were obtained. COMPARISON: None. FINDINGS: The uterus measures 17.6 x 10.5 x 14.9 cm. There is no free fluid in the pelvis. The endometrial comp liss[place] measures 24 mm in thickness without visible internal vascular flow. The ovaries are not visualize d. IMPRESSION: 1. Thickened endometrial complex, consistent with retained products of conception versus hematoma. Reviewed, dictated and finalized at location A. IMPRESSION: 1. Thickened endometrial complex, consistent with retained products of concepti on versus hematoma.
[2024-04-19 21:07] VITALS: BP 123/72; PULSE 80; TEMP 36.2; O2SAT 99
[2024-04-19 22:20] LABS: Basophils Absolute Auto 0.1 K/mm3 (0.0-0.1); Eosinophils Absolute Auto 0.2 K/mm3 (0-0.3); Eosinophils Percent Auto 2.3 % (0-4.4); Hematocrit 33.4 % (37.0-47.0); Hemoglobin 11.4 g/dL (12.0-15.0); Immature Granulocyte Percent A 1.2 % (0-0.5); Lymphocytes Percent Auto 29.2 % (18.3-44.2); Mean Corpuscular HGB Conc 34.1 g/dl (32-36); Mean Corpuscular Hemoglobin 31.6 pg (26-34); Mean Corpuscular Volume 92.5 fl (80-100); Mean Platelet Volume 9.1 fl (7.4-10.4); Monocytes Absolute Auto 0.6 K/mm3 (0.1-0.6); Monocytes Percent Auto 6.9 % (2.6-8.5); Neutrophils Absolute Auto 4.9 K/mm3 (1.3-6.7); Neutrophils Percent Auto 59.4 % (45.5-73.1); Platelet Count Result 247 k/mm3 (150-375); Red Blood Count 3.61 M/mm3 (4.2-5.4); Red Cell Distribution Width 13.8 % (11.5-14.5); White Blood Count 8.2 K/mm3 (4.5-10.0)
[2024-04-19 22:29] LABS: Alanine Aminotransferase 13 U/L (6-35); Albumin Level 3.3 g/dL (3.5-5.1); Alkaline Phosphatase 97 U/L (38-126); Anion Gap 5 mmol/L (4-12); Aspartate Amino Transferase 24 U/L (14-36); Bilirubin,Total 0.3 mg/dL (0.2-1.3); Blood Urea Nitrogen 10 mg/dL (7-17); Calcium 8.8 mg/dL (8.4-10.2); Carbon Dioxide 29 mmol/L (22-30); Chloride 102 mmol/L (98-107); Estimated CRCL calculation 135 ml/min; Estimated Glomerular Filt Rate > 60; Glucose 76 mg/dL (65-110); Potassium 3.8 mmol/L (3.4-5.0); Sodium 136 mmol/L (137-145)
[2024-04-19 22:31] LABS: INR 0.9; Prothrombin Time 12.9 Seconds (11.1-14.7)
[2024-04-19 22:57] VITALS: BP 122/77; PULSE 67; RESP 20; TEMP 36.9; O2SAT 100
--- NOTE | 2024-04-19 23:22 | ED.PREGNANCY ---
HPI - General Chief complaint: Vaginal Bleeding Stated complaint: bleeding Time Seen by Provider: 04/19/24 21:43 History of Present Illness HPI Narrative: 34-year-old female presenting with vaginal bleeding. Patient was discharged from the OB floor approximately 8 hours ago after spontaneous vaginal delivery yesterday. States that she has small laceration that required some stitches. When she got home this evening she felt a gush of fluids and went to the bathroom and found many large clots. She then soaked through 2 pads within 20 minutes. She called her OB who called her back and told her to come to the ER. Complains of persistent abdominal cramping. States that she is concerned to her stitches may have come out. No further complaints. Related Data Home Medications Medication Instructions Recorded Confirmed dextroamphetamine-amphetamine 20 20 mg PO DAILY 07/21/20 04/18/24 mg tablet (Adderall) prenat.vits,jatinder,xcx-afgj-oufno 1 tablet PO DAILY 01/04/22 04/18/24 Allergies Allergy/AdvReac Type Severity Reaction Status Date / Time Penicillins Allergy Severe Swelling Verified 04/19/24 22:02 of Lip/Tongue/Throat Review of Systems Review of Systems: All systems reviewed & are unremarkable except as noted in HPI and below PMFSH Past Medical History Medical History Abnormal uterine bleeding Crohn's disease Depression Obesity and not yet delivered Renal disease Kidney stones Surgical History Surgical History Hx of laparoscopy Family History Family History Daughter Sickle-cell trait Son Sickle-cell trait Other Sickle-cell trait Other Patient denies significant medical history Social History Social History Smoking status: Former smoker Tobacco type: cigarettes Second hand tobacco smoke exposure: No Smoking end date: 04/23/21 Alcohol intake: current Substance use: never Do You Feel Safe in your Home?: Yes Lack of Transportation: No Lack of Food: Never True Current Housing: I Have Housing Concerned About Future Housing: No Difficulty Paying Gas/Electric Bills: No Difficulty Paying for Meds: No Currently Unemployed: No Education: Associate Degree Difficulty w/ Childcare or Family Care: No Gender identity (if verbalized by the patient): Female Spiritual care concerns: No Exam Narrative: GENERAL: Well-appearing, in no acute distress, pleasant cooperative. HEAD: Normocephalic, atraumatic. EYES: PERRLA and EOMI. ENT: Grossly unremarkable NECK: Supple. CHEST: Clear to auscultation. No respiratory distress. HEART: Regular rate and rhythm ABDOMEN: Soft, mild lower tenderness PELVIC: small laceration at posterior vaginal orifice; +vaginal bleeding, no large clots appreciated EXTREMITIES: Normal range of motion. SKIN: Warm, dry, no rash. NEURO: No focal deficits. Alert and oriented x3. PSYCH: Normal mood and affect. Course Vital Signs Vital signs: Vital Signs Temperature 97.1 F L 04/19/24 21:07 Pulse Rate 80 04/19/24 21:07 Blood Pressure 123/72 04/19/24 21:07 Pulse Oximetry 99 04/19/24 21:07 Temperature 98.1 F 04/20/24 06:45 Pulse Rate 71 04/20/24 06:45 Respiratory Rate 16 04/20/24 06:45 Blood Pressure 100/54 L 04/20/24 06:45 Pulse Oximetry 97 04/20/24 02:45 Oxygen Delivery Room Air 04/20/24 02:45 Oxygen Flow Rate 8 04/20/24 01:54 MDM - OB/Uterine Contractions MDM Narrative Medical decision making narrative: 34-year-old female presenting with vaginal bleeding and abdominal cramping in the setting of spontaneous vaginal delivery yesterday. Vitals are stable. Pelvic exam with vaginal bleeding and several small clots, no large cl
[2024-04-19] MEDS: KETOROLAC 15 MG/ML VIAL (*BKC) IV PUSH (23:44)
[2024-04-19] MEDS: HYDROmorphone HCL INJ (*CRX) 1 MG/ML SYR 0.5 MG IV PUSH (23:45)
--- NOTE | 2024-04-20 00:57 | WPDANESEPP ---
Anes - Eval Pre Procedure Procedure: Operation Date: 04/20/24 01:00 Proposed Procedures p D&C Suction and Main Chan MD Date/Time: 04/20/24 00:57 Pre Op Diagnosis: bleeding Patient Data Age: 34 Gender: F Height: 1.83 m Weight: 114 kg Last Vital Signs Temp 36.9 C 04/19/24 22:57 Pulse 67 04/19/24 22:57 Resp 20 04/19/24 22:57 BP 122/77 04/19/24 22:57 Pulse Ox 100 04/19/24 22:57 Allergies Allergy/AdvReac Type Severity Reaction Status Date / Time Penicillins Allergy Severe Swelling Verified 04/19/24 22:02 of Lip/Tongue/Throat Home Medications Medication Instructions Recorded Confirmed Type dextroamphetamine-amphetamine 20 20 mg PO DAILY 07/21/20 04/18/24 History mg tablet (Adderall) prenat.vits,jatinder,dda-saxi-nmpmu 1 tablet PO DAILY 01/04/22 04/18/24 History Laboratory Tests 04/19/24 22:15 WBC 8.2 K/mm3 (4.5-10.0) RBC 3.61 L M/mm3 (4.2-5.4) Hgb 11.4 L g/dL (12.0-15.0) Hct 33.4 L % (37.0-47.0) MCV 92.5 fl (80-100) MCH 31.6 pg (26-34) MCHC 34.1 g/dl (32-36) RDW 13.8 % (11.5-14.5) Plt Count 247 k/mm3 (150-375) MPV 9.1 fl (7.4-10.4) Immature Gran % (Auto) 1.2 H % (0-0.5) Neut % (Auto) 59.4 % (45.5-73.1) Lymph % (Auto) 29.2 % (18.3-44.2) [place] % (Auto) 6.9 % (2.6-8.5) Eos % (Auto) 2.3 % (0-4.4) Baso % (Auto) 1.0 % (0.2-1.2) Lymph # (Auto) 2.40 K/mm3 (0.9-3.2) [place] # (Auto) 0.6 K/mm3 (0.1-0.6) Eos # (Auto) 0.2 K/mm3 (0-0.3) Baso # (Auto) 0.1 K/mm3 (0.0-0.1) Abs Immat Gran (auto) 0.10 H K/mm3 (0.00-0.031) Absolute Neuts (auto) 4.9 K/mm3 (1.3-6.7) Absolute Nucleated RBC 0.000 K/mm3 (0.0-0.012) Nucleated RBC % 0.0 % (0.0-0.2) PT 12.9 Seconds (11.1-14.7) INR 0.9 APTT 28.0 Seconds (22.3-36.8) Sodium 136 L mmol/L (137-145) Potassium 3.8 mmol/L (3.4-5.0) Chloride 102 mmol/L (98-107) Carbon Dioxide 29 mmol/L (22-30) Anion Gap 5 mmol/L (4-12) BUN 10 mg/dL (7-17) Creatinine 0.70 mg/dL (0.7-1.0) Estim Creat Clear Calc 135 ml/min Estimated GFR > 60 (59 - ) Glucose 76 mg/dL (65-110) Calcium 8.8 mg/dL (8.4-10.2) Total Bilirubin 0.3 mg/dL (0.2-1.3) AST 24 U/L (14-36) ALT 13 U/L (6-35) Alkaline Phosphatase 97 U/L (38-126) Total Protein 6.0 L g/dL (6.3-8.2) Albumin 3.3 L g/dL (3.5-5.1) Patient hx anesthesia problems: none Family hx anesthesia problems: none Results Review: All pre-operative results and documents have been reviewed as part of the pre-operative evaluation. [facility] Past Medical History Medical History Abnormal uterine bleeding Crohn's disease Depression Obesity and not yet delivered Renal disease Kidney stones Surgical History Surgical History Hx of laparoscopy Family History Family History Daughter Sickle-cell trait Son Sickle-cell trait Other Sickle-cell trait Other Patient denies significant medical history Social History Social History Smoking status: Former smoker Tobacco type: cigarettes Second hand tobacco smoke exposure: No Smoking end date: 04/23/21 Alcohol intake: current Substance use: never Do You Feel Safe in your Home?: Yes Lack of Transportation: No Lack of Food: Never True Current Housing: I Have Housing Concerned About Future Housing: No Difficulty Paying Gas/Electric Bills: No Difficulty Paying for Meds: No Currently Unemployed: No Education: Associate Degree Difficulty w/ Childcare or Family Care: No Gender identity (if verbalized by the patient): Female Spiritual care
--- NOTE | 2024-04-20 01:05 | PM.IMHP ---
H&P: HPI History of Present Illness Date/Time: 04/20/24 01:05 34-year-old female presents to the emergency room this evening with heavy vaginal bleeding. Delivered yesterday and was discharged home earlier today from a vaginal delivery. States that she has had cramping throughout but bleeding picked up when she went home. Also feels that she may have popped this suture as it was a long piece of string that she also noted with bleeding. In the emergency revaluation ultrasound reveals retained products or blood clots. Presents therefore for evaluation of these suture sites as well as removal of uterine contents. Chief Complaint: bleeding Review of Systems Review of Systems: All systems reviewed & are unremarkable except as noted in HPI and below PMFSH Past Medical History Medical History Abnormal uterine bleeding Crohn's disease Depression Obesity and not yet delivered Renal disease Kidney stones Surgical History Surgical History Hx of laparoscopy Family History Family History Daughter Sickle-cell trait Son Sickle-cell trait Other Sickle-cell trait Other Patient denies significant medical history Social History Social History Smoking status: Former smoker Tobacco type: cigarettes Second hand tobacco smoke exposure: No Smoking end date: 04/23/21 Alcohol intake: current Substance use: never Do You Feel Safe in your Home?: Yes Lack of Transportation: No Lack of Food: Never True Current Housing: I Have Housing Concerned About Future Housing: No Difficulty Paying Gas/Electric Bills: No Difficulty Paying for Meds: No Currently Unemployed: No Education: Associate Degree Difficulty w/ Childcare or Family Care: No Gender identity (if verbalized by the patient): Female Spiritual care concerns: No Meds Home Medications and Allergies Home Medications Medication Instructions Recorded Confirmed Type dextroamphetamine-amphetamine 20 20 mg PO DAILY 07/21/20 04/18/24 History mg tablet (Adderall) prenat.vits,jatinder,man-ejrs-qkpml 1 tablet PO DAILY 01/04/22 04/18/24 History Allergies Allergy/AdvReac Type Severity Reaction Status Date / Time Penicillins Allergy Severe Swelling Verified 04/19/24 22:02 of Lip/Tongue/Throat Vital Signs Vital Signs - 24 hr 04/19/24 21:07 04/19/24 22:57 Temperature 97.1 F L 98.4 F Pulse Rate 80 67 Respiratory Rate 20 Blood Pressure 123/72 122/77 Pulse Oximetry 99 100 Exam Const: General: cooperative, healthy appearing and comfortable Resp: Effort & Inspection: normal respiratory effort Auscultation: clear to auscultation bilaterally Cardio: Rate: regular rate Rhythm: regular rhythm GI: Inspection: normal to inspection Auscultation: normal bowel sounds : Other: Deferred/will examine in OR H&P: Results Labs Labs: Short CBC 04/19/24 Range/Units 22:15 WBC 8.2 (4.5-10.0) K/mm3 Hgb 11.4 L (12.0-15.0) g/dL Hct 33.4 L (37.0-47.0) % Plt Count 247 (150-375) k/mm3 BMP 04/19/24 22:15 Sodium 136 L Potassium 3.8 Chloride 102 Carbon Dioxide 29 BUN 10 Creatinine 0.70 Glucose 76 Calcium 8.8 Liver Function 04/19/24 Range/Units 22:15 Total Bilirubin 0.3 (0.2-1.3) mg/dL AST 24 (14-36) U/L ALT 13 (6-35) U/L Alkaline Phosphatase 97 (38-126) U/L Albumin 3.3 L (3.5-5.1) g/dL Assessment and Plan Assessment and plan (1) bleeding: Code(s): O72.1 - Other immediate hemorrhage Status: Acute Assessment and Plan: Proceed with exam under anesthesia as well as suction curettage removal of clots and or placental fragments.
--- NOTE | 2024-04-20 01:09 | WPDHPUPDATE1 ---
History and Physical Update Update Date/Time: 04/20/24 01:09 History and Physical has been reviewed, including an updated exam of the patient. There are NO changes in the patient's condition. Risks, benefits, and alternatives have been discussed and questions answered. Patient agrees to proceed with procedure.
[2024-04-20] MEDS: ceFAZolin SODIUM 1 GM VIAL 2 GM IV PUSH (01:20)
--- NOTE | 2024-04-20 01:20 | WPDANESEPPF ---
Anes - Initial Pre Proc Eval Procedure: Operation Date: 04/20/24 01:00 Proposed Procedures p D&C Suction and Sharp - Serge Chan MD Date/Time: 04/20/24 01:20 Surgeon: Serge Chan MD Pre Op Diagnosis: bleeding Patient Data Age: 34 Gender: F Height: 1.83 m Weight: 114 kg Last Vital Signs Temp 98.4 F 04/19/24 22:57 Pulse 67 04/19/24 22:57 Resp 20 04/19/24 22:57 BP 122/77 04/19/24 22:57 Pulse Ox 100 04/19/24 22:57 Allergies Allergy/AdvReac Type Severity Reaction Status Date / Time Penicillins Allergy Severe Swelling Verified 04/19/24 22:02 of Lip/Tongue/Throat Home Medications Medication Instructions Recorded Confirmed Type dextroamphetamine-amphetamine 20 20 mg PO DAILY 07/21/20 04/18/24 History mg tablet (Adderall) prenat.vits,jatinder,tiq-pdeg-tmvew 1 tablet PO DAILY 01/04/22 04/18/24 History Laboratory Tests 04/19/24 22:15 WBC 8.2 K/mm3 (4.5-10.0) RBC 3.61 L M/mm3 (4.2-5.4) Hgb 11.4 L g/dL (12.0-15.0) Hct 33.4 L % (37.0-47.0) MCV 92.5 fl (80-100) MCH 31.6 pg (26-34) MCHC 34.1 g/dl (32-36) RDW 13.8 % (11.5-14.5) Plt Count 247 k/mm3 (150-375) MPV 9.1 fl (7.4-10.4) Immature Gran % (Auto) 1.2 H % (0-0.5) Neut % (Auto) 59.4 % (45.5-73.1) Lymph % (Auto) 29.2 % (18.3-44.2) Overton % (Auto) 6.9 % (2.6-8.5) Eos % (Auto) 2.3 % (0-4.4) Baso % (Auto) 1.0 % (0.2-1.2) Lymph # (Auto) 2.40 K/mm3 (0.9-3.2) Overton # (Auto) 0.6 K/mm3 (0.1-0.6) Eos # (Auto) 0.2 K/mm3 (0-0.3) Baso # (Auto) 0.1 K/mm3 (0.0-0.1) Abs Immat Gran (auto) 0.10 H K/mm3 (0.00-0.031) Absolute Neuts (auto) 4.9 K/mm3 (1.3-6.7) Absolute Nucleated RBC 0.000 K/mm3 (0.0-0.012) Nucleated RBC % 0.0 % (0.0-0.2) PT 12.9 Seconds (11.1-14.7) INR 0.9 APTT 28.0 Seconds (22.3-36.8) Sodium 136 L mmol/L (137-145) Potassium 3.8 mmol/L (3.4-5.0) Chloride 102 mmol/L (98-107) Carbon Dioxide 29 mmol/L (22-30) Anion Gap 5 mmol/L (4-12) BUN 10 mg/dL (7-17) Creatinine 0.70 mg/dL (0.7-1.0) Estim Creat Clear Calc 135 ml/min Estimated GFR > 60 (59 - ) Glucose 76 mg/dL (65-110) Calcium 8.8 mg/dL (8.4-10.2) Total Bilirubin 0.3 mg/dL (0.2-1.3) AST 24 U/L (14-36) ALT 13 U/L (6-35) Alkaline Phosphatase 97 U/L (38-126) Total Protein 6.0 L g/dL (6.3-8.2) Albumin 3.3 L g/dL (3.5-5.1) Patient hx anesthesia problems: none Family hx anesthesia problems: none Results Review: All pre-operative results and documents have been reviewed as part of the pre-operative evaluation. [facility] Past Medical History Medical History Abnormal uterine bleeding Crohn's disease Depression Obesity and not yet delivered Renal disease Kidney stones Surgical History Surgical History Hx of laparoscopy Family History Family History Daughter Sickle-cell trait Son Sickle-cell trait Other Sickle-cell trait Other Patient denies significant medical history Social History Social History Smoking status: Former smoker Tobacco type: cigarettes Second hand tobacco smoke exposure: No Smoking end date: 04/23/21 Alcohol intake: current Substance use: never Do You Feel Safe in your Home?: Yes Lack of Transportation: No Lack of Food: Never True Current Housing: I Have Housing Concerned About Future Housing: No Difficulty Paying Gas/Electric Bills: No Difficulty Paying for Meds: No Currently Unemployed: No Education: Associate Degree Difficulty w/ Childcare or Family Care: No Gender identity (if verba
[2024-04-20 01:54] VITALS: BP 119/65; PULSE 89; RESP 18; TEMP 36.7; O2SAT 97
[2024-04-20] MEDS: LACTATED RINGERS 1,000 ML 30 ML IV CONT (01:54)
[2024-04-20] MEDS: fentaNYL CITRATE INJ (*CRX) 100 MCG/2 ML VIAL 25 MCG IV PUSH ×8 (01:59→02:47)
--- NOTE | 2024-04-20 01:59 | W.PM.PROC2 ---
Procedure Note - Detailed Date of Procedure 04/20/24 Pre-op Diagnosis bleeding Post-op Diagnosis Same Procedure Performed 1. Suction curettage 2. Repair of vaginal wall laceration Surgeon Serge Chan MD Anesthesia General Findings 1. Enlarged uterus with retained clots, questionable placental fragments 2. Midline laceration in posterior vaginal wall Description of Procedure Patient was prepped and draped usual manner for this procedure. Bimanual exam was performed and uterine exploration was performed with approximately 2-300 cc of old clots removed. Suction curetting then obtained with further clot removed with questionable placental fragments though no distinct placental retention was noted. Uterine exploration again at this point with no retained products and no obvious abnormalities noted. Uterus was well contracted and firm. Methergine and Pitocin were given empirically. Midline laceration was oozing and reapproximated with a 2-0 chromic in a running interlocking manner with good approximation hemostasis noted. Vaginal packing was placed and will be removed in the morning. Patient was sent to recovery room in stable condition. Estimated Blood Loss 450 Urine Output 500 Drains No Packing Yes (Vaginal) Pathology Yes Complications No immediate complications Condition Stable Disposition PACU [facility] Billing Surgery - Charge Forward: Surgery Billing
[2024-04-20 02:00] VITALS: BP 118/59; PULSE 70; RESP 18; O2SAT 100
[2024-04-20 02:15] VITALS: BP 120/69; PULSE 71; RESP 14; O2SAT 98
[2024-04-20 02:30] VITALS: BP 118/66; PULSE 75; RESP 14; O2SAT 96
[2024-04-20 02:45] VITALS: BP 117/66; PULSE 75; RESP 12; O2SAT 97
[2024-04-20] MEDS: ACETAMINOPHEN 325 MG TABLET 650 MG PO (04:04)
[2024-04-20] MEDS: KETOROLAC 30 MG/ML VIAL (*BKC) IV PUSH (04:04)
[2024-04-20 06:45] VITALS: BP 100/54; PULSE 71; RESP 16; TEMP 36.7
[2024-04-20] MEDS: DOCUSATE SODIUM 100 MG CAPSULE PO (06:45)
[2024-04-20] MEDS: POLYSACCHARIDE IRON COMPLEX 150 MG CAPSULE PO (06:45)
[2024-04-20] MEDS: HYDROcodone/acetaminophen (*CRX) 5-325 MG TABLET 1 TAB PO ×2 (06:45→10:51)
[2024-04-20] MEDS: MULTIVIT/MIN/PREN/FOL AC/IRON TABLET 1 TAB PO (06:45)
[2024-04-20] MEDS: IBUPROFEN 600 MG TABLET PO (10:50)
--- NOTE | 2024-04-23 14:12 | PM.OBDSVD ---
DS: Admitting Diagnosis Discharge Date 04/20/24 Admitting Diagnosis hemorrhage DS: Discharge Diagnosis Discharge Diagnosis (1) bleeding: Code(s): O72.1 - Other immediate hemorrhage Status: Acute OB - DS: Summary Hospital Course Hospital Course: 34-year-old female admitted with bleeding question of retained products of conception. Underwent suction curettage with clots and questionable retained products removed. See operative note for full details. Was monitored for [id number] after had no further bleeding was discharged home without difficulty. OB Procedures : None OB Procedures Intrapartum: Other OB Procedures: : Curettage Peripartum Data Procedures: Procedures Operation Date: 04/20/24 01:00 Actual Procedure Side Surgeon p Suction Dilation and Curettage Not Applicable Serge Chan MD Time Spent with Patient Time attestation: Total time spent providing and/or coordinating discharge services: DS: Data Data Completed and Pending Completed studies during hospitalization: Pending at discharge 04/20/24 01:32 Surgical [PTH] Routine Discharge Plan Discharge Attending physician on discharge: Serge Chan Consulting providers: Stephen Flores V.; Lita Ortez; Sharan Callejas Discharging Clinician: Serge Chan Patient Disposition: Home, Self-Care Activity: as tolerated Diet: as tolerated Patient Instructions: Antibiotic Form, Dilation and Curettage (DC) Stand Alone Forms: General Discharge Information Follow-up/Referrals: Belinda Phelps APRN [Primary Care Provider] - Discharge Medications: New hydrocodone-acetaminophen 5-300 mg tablet 1 tablet PO Q6H PRN (Reason: pain) Qty: 14 0RF Continued dextroamphetamine-amphetamine [Adderall] 20 mg tablet 20 mg PO DAILY prenat.vits,jatinder,igs-ouad-stmip Tablet 1 tablet PO DAILY Date of admission: 04/20/24 03:00 Primary Care Provider: Belinda Phelps Admitting Provider: Serge Chan Attending physician on admission: Serge Chan Condition: Stable
== END 2024-04-20 12:03 | disposition home or self-care (01) ==
LOC: ANHED 04-20 00:38 → ANHSURGERY 04-20 00:42 → ANHOB2 04-20 03:06
PROVIDERS: Student in an Organized Health Care Education/Training Program; Admitting Provider Obstetrics & Gynecology; Emergency Provider Emergency Medicine; PCP Nurse Practitioner Family; Visit Provider Obstetrics & Gynecology
PROC: (CPT 59160; principal; 2024-04-20 01:00)
DX: O72.2 Delayed and secondary postpartum hemorrhage (principal); O90.1 Disruption of perineal obstetric wound; Z87.891 Personal history of nicotine dependence
CPT/HCPCS: 59160; 59300; 36415; 76856; 80053; 85025; 85610; 85730; 88305; A9270; G0378; G0379; J0330; J0690; J1100; J1170; J1885; J2210; J2250; J2405; J2704; J3010; J7120

== ENCOUNTER 2024-07-26 00:52 | Day surgery (SDC) | payer OTHER, SELFPAY ==
[2024-06-21 13:04] VITALS: BMI 31.2
--- NOTE | 2024-06-21 13:09 | PC.NURSE ---
Report to the Outpatient Waiting Room, entrance under the green pavilion located off [facility], at time _0700_ on date _[id number]_. Planned Procedure Time: _0900_.? Time changes happen often and if your time is changed the preop area will call you the afternoon before. - You and your visitor will be asked to self-screen and do not enter if you have any COVID symptoms. Please call surgeon if you need to reschedule. - A mask is optional within the hospital at this time. Patients may have clear liquids (water, carbonated beverages, clear teas, apple juice) until 3 hours prior to surgery with a maximum of 20 ounces. - No food from midnight until time of surgery and no smoking Take only the following medications with a SIP of water on the morning of surgery: ___None___ DO NOT STOP ANY OF YOUR OTHER PRESCRIPTION MEDICATIONS PRIOR TO SURGERY EXCEPT THE FOLLOWING Medications to discontinue per physician ___Prenatal vitamin____ Date to take last btcq___[id number]____ Please no make-up, nail french, hairspray, perfume, deodorant, or body powder the day of surgery.? No jewelry (including any body piercings) or valuables the day of surgery, leave them at home.? Please take a shower or bath the night before, or the morning of, surgery with an antibacterial soap.? Wear comfortable, loose fitting clothing.? - Jewelry must be removed prior to entering the operating room.? Rings and piercings that are not removed may be cut off. - The hospital will not accept responsibility for valuables.? - Please leave all valuables, including medications, at home the day of surgery. If you are going home after surgery, a licensed test car driver must drive you home.? - NO public transportation without another adult if you receive anesthesia. - We recommend that an adult stay with you for 24 hours following discharge. - We also recommend that you do not drive, make important decision, drink alcoholic beverages, or take any drugs that were not prescribed by your health care provider for at least 24 hours after your discharge time. Follow any additional instructions given to you from your surgeon. Telephone instructions given to __Carline__and asked if any additional questions and then verbalized understanding. Patient advised to call surgeon office or pre surgery nurse liaison [phone] if any additional questions.
--- NOTE | 2024-07-16 12:54 | SUR.PREOP ---
Report to the Outpatient Waiting Room, entrance under the green pavilion located off [facility], at time _0630_ on date _07/26/2024_. Planned Procedure Time: _0830_.? Time changes happen often and if your time is changed the preop area will call you the afternoon before. - You and your visitor will be asked to self-screen and do not enter if you have any COVID symptoms. Please call surgeon if you need to reschedule. - A mask is optional within the hospital at this time. Patients may have clear liquids (water, carbonated beverages, clear teas, apple juice) until 3 hours (0530) prior to surgery with a maximum of 20 ounces. - No food from midnight until time of surgery and no smoking. This includes no chewing gum, candy or mints. - Infants may have breast milk until 4 hours before surgery, formula 6 hours prior to surgery. - Children will be allowed to drink immediately following surgery.? If applicable, please bring a bottle or sippy cup to assist with drinking. Juice, water, soda, and popsicles are readily available.? For infants on formula, please bring formula the day of surgery.? Pacifiers are allowed. Take only the following medications with a SIP of water on the morning of surgery: _NA_ DO NOT STOP ANY OF YOUR OTHER PRESCRIPTION MEDICATIONS PRIOR TO SURGERY EXCEPT THE FOLLOWING Medications to discontinue per physician _Vitamin_ Date to take last dose_07/23/2024_ Please no make-up, nail telugu, hairspray, perfume, deodorant, or body powder the day of surgery.? No jewelry (including any body piercings) or valuables the day of surgery, leave them at home.? Please take a shower or bath the night before, or the morning of, surgery with an antibacterial soap.? Wear comfortable, loose fitting clothing.? Children are encouraged to wear pajamas. - Jewelry must be removed prior to entering the operating room.? Rings and piercings that are not removed may be cut off. - The hospital will not accept responsibility for valuables.? - Please leave all valuables, including medications, at home the day of surgery. If you are going home after surgery, a licensed marine engine driver must drive you home.? - NO public transportation without another adult if you receive anesthesia. - We recommend that an adult stay with you for 24 hours following discharge. - We also recommend that you do not drive, make important decision, drink alcoholic beverages, or take any drugs that were not prescribed by your health care provider for at least 24 hours after your discharge time. For Pediatric surgeries, we recommend two adults accompany the child home. Follow any additional instructions given to you from your surgeon. Telephone instructions given to _Carline_and asked if any additional questions and then verbalized understanding. Patient advised to call surgeon office or pre surgery nurse liaison [phone] if any additional questions.
--- NOTE | 2024-07-16 13:00 | SUR.PREOP ---
PER PATIENT NO NEW HISTORY OR MEDICATIONS SINCE PREVIOUS TELEPHONE INTERVIEW ON 06/21/2024. UPDATED TIMES/INSTRUCTIONS GIVEN TO PATIENT VIA TELEPHONE AT THIS TIME.
[2024-07-26] VITALS (9 sets, daily range): BP systolic 100–117; BP diastolic 62–72; PULSE 60–78; RESP 14–18; TEMP 36.3; O2SAT 95–100
[2024-07-26] MEDS: LACTATED RINGERS 1,000 ML 30 ML IV CONT ×2 (06:30→09:13)
[2024-07-26] MEDS: KETOROLAC 15 MG/ML VIAL (*BKC) IV PUSH (06:35)
[2024-07-26] MEDS: ACETAMINOPHEN 500 MG TABLET 1000 MG PO (06:35)
[2024-07-26] MEDS: BUPivacaine HCL 0.5% 10 ML AMP 30 ML INFILTRATE (07:10)
--- NOTE | 2024-07-26 07:14 | PM.IMHP ---
H&P: HPI History of Present Illness Date/Time: 07/26/24 07:14 Chief Complaint: Request sterilization Narrative: Patient is a 34 y/p P4 with satisfied parity and request for permanent sterilization. She declines all non permanent forms of contraception. Review of Systems Review of Systems: All systems reviewed & are unremarkable except as noted in HPI and below Cardiovascular: Cardiovascular: Reports no additional cardiovascular complaints, Denies chest pain and Denies dyspnea Respiratory: Respiratory: Reports no additional respiratory complaints and Denies dyspnea Gastrointestinal: Gastrointestinal: Reports abdominal pain, Denies change in bowel habits, Denies diarrhea, Denies nausea and Denies vomiting Genitourinary: Genitourinary: Reports pelvic pain Musculoskeletal: Musculoskeletal: Reports back pain Integumentary/Breasts: Skin/Breast: Reports system reviewed and no additional complaints, except as docu Neurologic: Reports system reviewed and no additional complaints, except as documented PMFSH Past Medical History Medical History Obesity and not yet delivered Depression Renal disease Kidney stones Abnormal uterine bleeding Crohn's disease Surgical History Surgical History Hx of laparoscopy Family History Family History Daughter Sickle-cell trait Son Sickle-cell trait Other Sickle-cell trait Other Patient denies significant medical history Social History Social History Years smoked: 10 Smoking status: Former smoker Tobacco type: cigarettes Second hand tobacco smoke exposure: No Smoking end date: 04/23/21 Alcohol intake: current Substance use: never Do You Feel Safe in your Home?: Yes Lack of Transportation: No Lack of Food: Never True Current Housing: I Have Housing Concerned About Future Housing: No Difficulty Paying Gas/Electric Bills: No Difficulty Paying for Meds: No Currently Unemployed: No Education: Associate Degree Difficulty w/ Childcare or Family Care: No Living arrangements: with family Gender identity (if verbalized by the patient): Female Spiritual care concerns: No Meds Home Medications and Allergies Home Medications ?Medication ?Instructions ?Recorded ?Confirmed ?Type dextroamphetamine-amphetamine 20 20 mg PO DAILY 07/21/20 07/16/24 History mg tablet (Adderall) prenat.vits,jatinder,lwb-wyqi-qnrld 1 tablet PO DAILY 01/04/22 07/26/24 History Allergies Allergy/AdvReac Type Severity Reaction Status Date / Time Penicillins Allergy Severe Swelling Verified 07/16/24 13:03 of Lip/Tongue/Throat Exam Const: Orientation/consciousness: oriented to person and oriented to place HENMT: Head: normal to inspection Eyes: General: appearance normal, both eyes and all related structures Resp: Effort & Inspection: normal respiratory effort Auscultation: clear to auscultation bilaterally Cardio: Rate: regular rate Rhythm: regular rhythm GI: Inspection: normal to inspection GI Palp: No Rebound tenderness present Neuro: General: oriented to person and oriented to place Cognition (Neuro): normal cognition Extrem: General: normal to inspection Psych: Appearance: grossly normal and well kempt Assessment and Plan Assessment and plan (1) Encounter for sterilization: Code(s): Z30.2 - Encounter for sterilization Status: Acute Assessment and Plan: Will proceed with laparoscopic bilateral salpingectomy.
[2024-07-26 07:18] LABS: BEDSIDEPREGUCG Negative (Negative)
--- NOTE | 2024-07-26 07:30 | P.PNAN_ITS ---
Anes - Initial Pre Proc Eval Procedure: Operation Date: 07/26/24 07:30 Proposed Procedures p Bilateral Laparoscopic Salpingectomy - Altaf Breen MD Date/Time: 07/26/24 07:30 Surgeon: Altaf Breen MD Pre Op Diagnosis: desires sterilization Patient Data Age: 34 Gender: F Height: 1.83 m Weight: 108.7 kg Last Vital Signs Temp 97.3 F L 07/26/24 06:14 Pulse 78 07/26/24 06:14 Resp 18 07/26/24 06:14 BP 117/72 07/26/24 06:14 Pulse Ox 95 07/26/24 06:14 O2 Del Method Room Air 07/26/24 06:14 Allergies Allergy/AdvReac Type Severity Reaction Status Date / Time Penicillins Allergy Severe Swelling Verified 07/16/24 13:03 of Lip/Tongue/Throat Home Medications ?Medication ?Instructions ?Recorded ?Confirmed ?Type dextroamphetamine-amphetamine 20 20 mg PO DAILY 07/21/20 07/16/24 History mg tablet (Adderall) prenat.vits,jatinder,hkz-mdqs-hvwny 1 tablet PO DAILY 01/04/22 07/26/24 History Laboratory Tests 07/26/24 07:16 POC Urine HCG, Qual Negative (Negative) Patient hx anesthesia problems: none Family hx anesthesia problems: none Results Review: All pre-operative results and documents have been reviewed as part of the pre- operative evaluation. [facility] Past Medical History Medical History Obesity and not yet delivered Depression Renal disease Kidney stones Abnormal uterine bleeding Crohn's disease Surgical History Surgical History Hx of laparoscopy Family History Family History Daughter Sickle-cell trait Son Sickle-cell trait Other Sickle-cell trait Other Patient denies significant medical history Social History Social History Years smoked: 10 Smoking status: Former smoker Tobacco type: cigarettes Second hand tobacco smoke exposure: No Smoking end date: 04/23/21 Alcohol intake: current Substance use: never Do You Feel Safe in your Home?: Yes Lack of Transportation: No Lack of Food: Never True Current Housing: I Have Housing Concerned About Future Housing: No Difficulty Paying Gas/Electric Bills: No Difficulty Paying for Meds: No Currently Unemployed: No Education: Associate Degree Difficulty w/ Childcare or Family Care: No Living arrangements: with family Gender identity (if verbalized by the patient): Female Spiritual care concerns: No Anes - Eval Final PreProcedure Day of Procedure 07/26/24 07:30 Patient weight: obese Heart: regular rate and rhythm Lungs: clear to auscultation Airway: Mallampati scale class II Neurological: alert and oriented Last oral intake: >/= 8 hours ASA classification: II Emergent: no Anesthetic plan: proceed Anesthesia type and monitoring: general ETT and standard monitoring Results Review: All pre-operative results and documents have been reviewed as part of the pre- operative evaluation. Informed Consent: The patient's anesthetic plan and its attendant risks and benefits were discussed with the patient/family/POA. Questions were solicited and answers provided to the satisfaction of the patient/family/POA.
--- NOTE | 2024-07-26 07:38 | WPDHPUPDATE1 ---
History and Physical Update Update Date/Time: 07/26/24 07:38 History and Physical has been reviewed, including an updated exam of the patient. There are NO changes in the patient's condition. Risks, benefits, and alternatives have been discussed and questions answered. Patient agrees to proceed with procedure.
--- NOTE | 2024-07-26 08:30 | P.OP_ITS ---
Procedure Note - Detailed Date of Procedure 07/26/24 Pre-op Diagnosis desires sterilization Post-op Diagnosis Same Procedure Performed Laparoscopic bilateral salpingectomy Surgeon Altaf Breen MD Anesthesia General Indications undesired fertility satisfied parity desires permanent sterilization Findings normal uterus normal fallopian tubes and ovaries bilaterally Description of Procedure After informed consent was obtained patient was taken to the operating room and general endotracheal anesthesia was administered. She was placed in low lithotomy position and prepped and draped in sterile fashion. Attention was turned to the vagina speculum inserted single-tooth tenaculum placed on anterior lip of the cervix. Enterprise uterine manipulator placed into the cervical canal. The speculum was removed. Attention was then turned to the abdomen. 0.5% Marcaine was injected at the umbilical area. With sterile gloves a vertical incision was made at the umbilicus and a Veress needle was inserted into the abdomen confirmation into the abdomen obtained with free flow of fluid and normal peritoneal pressures. A pneumoperitoneum of 15 mm per mercury was obtained. The 5 mm port was inserted under laparoscopic visualization. Patient was placed in Trendelenburg position. Attention was turned to the left side of the abdomen and Marcaine was injected subcutaneously. A 5 mm port was inserted under laparoscopic visualization. The pelvic organs were visualized. Using the LigaSure the left fallopian tube was excised to near the entrance to the uterus. This was removed through the port. Attention was then turned to the right fallopian tube which was grasped at the distal end and cauterized from the mesial salpinx to within a cm of the entrance to the entrance to the uterus. The fallopian tube was removed through the 5 mm port. Hemostasis was noted at both sites. Patient was taken out of Trendelenburg position the pneumoperitoneum was released and the skin incisions were closed in a subcuticular fashion with 4 O Vicryl. tenaculum was removed. Patient tolerated procedure well sponge count correct. She was extubated in operating room. Estimated Blood Loss 5 Drains No Packing No Pathology Yes ( right and left fallopian tube ) Complications No immediate complications Condition Stable Disposition Same day [facility] Billing Surgery - Charge Forward: Surgery Billing
[2024-07-26] MEDS: fentaNYL CITRATE INJ (*CRX) 100 MCG/2 ML VIAL 25 MCG IV PUSH ×8 (08:51→09:28)
[2024-07-26] MEDS: oxyCODONE HCL (*CRX) 5 MG TAB IR PO (10:06)
== END 2024-07-26 10:55 | disposition home or self-care (01) ==
PROVIDERS: PCP Nurse Practitioner Family; Visit Provider Obstetrics & Gynecology
PROC: (CPT 49320; principal; 2024-07-26 07:30)
DX: Z30.2 Encounter for sterilization (principal); Z87.891 Personal history of nicotine dependence; E66.9 Obesity, unspecified; Z68.32 Body mass index [BMI] 32.0-32.9, adult
CPT/HCPCS: 58661; 88302; A9270; J1100; J1885; J2003; J2250; J2405; J2704; J3010; J7030; J7120

== ENCOUNTER 2025-04-25 15:41 | Emergency (ER) | payer OTHER, SELFPAY ==
--- NOTE | 2025-04-25 15:43 | ED.FEMALEGU ---
HPI - Female Genitourinary General Chief complaint: Urogenital-Female Stated complaint: UTI Time Seen by Provider: 04/25/25 15:42 Source: patient Mode of arrival: ambulatory Limitations: no limitations History of Present Illness HPI Narrative: Carline is a 35-year-old female patient presenting to the clinic today with complaints of a possible UTI. She reports since yesterday she has been having burning, frequency, and urgency with urination. She also reports some lower back pain. Denies any abdominal pain. No fevers, chills, body aches. Has taken azo for her symptoms. Last dose of azo was 8:00 a.m. this morning. Denies any vaginal discharge or odor. No concern for . Last menstrual period was 2 weeks ago. Related Data Home Medications ?Medication ?Instructions ?Recorded ?Confirmed ?Last Taken ?Type dextroamphetamine-amphetamine 20 20 mg PO DAILY 07/21/20 08/28/24 04/17/24 08:00 History mg tablet (Adderall) Allergies Allergy/AdvReac Type Severity Reaction Status Date / Time Penicillins Allergy Severe Swelling Verified 04/25/25 15:51 of Lip/Tongue/Throat Review of Systems Review of Systems: Pertinent positives per HPI. Patient denies any fever, chills, rash, headache, visual changes, dizziness, cough, runny nose, sore throat, shortness of breath, chest pain, palpitations, nausea, vomiting, diarrhea, constipation, abdominal pain PMFSH Past Medical History Medical History Obesity and not yet delivered Depression Renal disease Kidney stones Abnormal uterine bleeding Crohn's disease Surgical History Surgical History Hx of tubal ligation Hx of laparoscopy Family History Family History Daughter Sickle-cell trait Son Sickle-cell trait Other Sickle-cell trait Other Patient denies significant medical history Social History Social History Years smoked: 10 Smoking status: Former smoker Tobacco type: cigarettes Second hand tobacco smoke exposure: No Smoking end date: 09/10/21 Alcohol intake: current Substance use: never Do You Feel Safe in your Home?: Yes Lack of Transportation: No Lack of Food: Never True Current Housing: I Have Housing Concerned About Future Housing: No Difficulty Paying Gas/Electric Bills: No Difficulty Paying for Meds: No Currently Unemployed: No Education: Associate Degree Difficulty w/ Childcare or Family Care: No Living arrangements: with family Gender identity (if verbalized by the patient): Female Spiritual care concerns: No Comments At the time of my signature, I reviewed and agree with the nursing past medical, surgical, social, and family history. There is no relevant family history pertinent to the patient complaint. Exam Narrative: General: Well-developed, obese, in no apparent distress. Head: Normocephalic, atraumatic. Cardio: Regular rate and rhythm, s1 and s2 normal, no murmur appreciated. Resp: Clear to auscultation bilaterally, no rhonchi, rales, wheezing or rubs. Abdomen: Soft, pliable, bowel sounds present in all quadrants, suprapubic tender to palpation, no organomegly, no CVAT tenderness. Course Course Emergency Course: Portions of this record may have been created with voice recognition software. Level of Care: Express Care Visit Vital Signs Vital signs: Vital Signs Temperature 37.2 C 04/25/25 15:54 Pulse Rate 94 04/25/25 15:54 Respiratory Rate 14 04/25/25 15:54 Blood Pressure 131/65 04/25/25 15:54 Pulse Oximetry 100 04/25/25 15:54 Oxygen Delivery Room Air 04/25/25 15:54 Temperature 37.2 C 04/25/25 15:54 Pulse Rate 94 04/25/25 15:54 Respiratory Rate 14 04/25/25 15:54 Blood Pressure 131/65 04/25/25 15:54 Pulse Oximetry 100 04/25/25 15:54 Oxygen Delivery Room Air 04/25/25 15:54 Vital signs reviewed MDM - Female Genitourinary MDM Narrative Medical decision making narrative: At the time of visit patient is resting comfortably on the exam table. Patient appears to be nontoxic. Complaints of a possible UTI. She reports since yesterday she has been having burning, frequency, and urgency with urination. She also reports some lower back pain. Denies any abdominal pain. No fevers, chills, body aches. Has taken azo for her symptoms. Last dose of azo was 8:00 a.m. this morning. Denies any vaginal discharge or odor. No concern for . Last menstrual period was 2 weeks ago. On exam patient is reporting low back pain and has suprapubic tenderness. Bowel sounds present all 4 quadrants. Urinalysis dip and culture ordered Labs: Urinalysis positive for leukocytes, nitrates, and blood. We will send urine for culture Plan: I suspect patient has a UTI. Prescription for Bactrim DS 1 tab twice daily x5 days was sent to the pharmacy. We will send urine for culture. Supportive measures were discussed with the patient and they voiced understanding discharge instructions and agrees to treatment plan. Return precautions reviewed Differential Diagnosis Differential diagnosis: Likely urinary tract infection and cystitis Lab Data Labs: Lab Results 04/25/25 Range/Units 15:55 POC Urine Color Yellow POC Urine Clarity Clear POC Urine pH 6.5 POC Ur Specif [place] 1.015 POC Urine Protein Negative (Negative) POC Ur Glucose (UA) Negative (Negative) POC Urine Ketones Negative (Negative) POC Urine Blood Trace (Negative) POC Urine Nitrite Positive (Negative) POC Urine Bilirubin Negative (Negative) POC Urine Urobilinogen 0.2 POC U Leukocyte Esteras Trace (Negative) Discharge Plan Discharge Clinical Impression: Urinary tract infection Qualifiers: Urinary tract infection type: acute cystitis Hematuria presence: with hematuria Qualified Code(s): N30.01 - Acute cystitis with hematuria Patient Disposition: Home Condition: Stable Instructions: Antibiotic Form, Urinary Tract Infection in Women (ED) Additional Instructions: We will send urine for culture Take Bactrim as prescribed Increase fluids and stay well hydrated Wipe front to back. May use wet wipes. Avoid tub baths If sexually active- pee before and after intercourse. Wear cotton panties Avoid tight clothing up against the genitals Follow up with your PCP in 1 week if symptoms persist. Patient Language: Gibralt[place] Prescriptions: New sulfamethoxazole-trimethoprim [Bactrim DS] 800-160 mg tablet 1 tablet PO Q12H 5 Days Qty: 10 0RF No Action dextroamphetamine-amphetamine [Adderall] 20 mg tablet 20 mg PO DAILY Follow-up/Referrals: Belinda Phelps APRN [Primary Care Provider, [facility]] Time of Disposition: 15:57 Quality [facility] Nursing Documentation ED [facility] nursing documentation: reviewed/agree
[2025-04-25 15:54] VITALS: BP 131/65; PULSE 94; RESP 14; TEMP 37.2; O2SAT 100
[2025-04-25 15:57] LABS: EDUAAPPEAR Clear; EDUABILI Negative (Negative); EDUABLOOD Trace (Negative); EDUACOLOR1 Yellow; EDUAGLUCOSE Negative (Negative); EDUAKETONE Negative (Negative); EDUALEUKO Trace (Negative); EDUANITRATE Positive (Negative); EDUAPH 6.5; EDUAPROTEIN Negative (Negative); EDUASPGRAVITY 1.015; EDUAUROBILI 0.2
--- OUTSIDE RECORDS SUMMARY | 2025-04-25 16:06 | XMS_ITS | Clinical Summary ---
Author Organization [facility] Address [facility] [place] [address] Care Team Providers Care Carcass Splitter Name Role Phone Unavailable Primary Care Provider Unavailabl e Social History Tobacco Use Types Packs/Day Years Used Date Smoking Tobacco: Never Assessed Comments Unknown Sex and Gender Information Value Date Recorded Sex Assigned at Not on file Legal Sex Female 6:03 PM CDT Gender Identity Not on file Sexual Orientation Not on file Last Filed Vital Signs Vital Sign Reading Time Taken Comments Blood Pressure 120/70 12/08/2014 1:37 PM CDT Pulse 84 12/08/2014 1:37 PM CDT Temperature - - Respiratory Rate - - Oxygen Saturation - - Inhaled Oxygen Concentration - - Weight 106.1 kg (234 lb) 12/08/2014 1:37 PM CDT Height 182.9 cm (6') 12/08/2014 1:37 PM CDT Body Mass Index 31.74 12/08/2014 1:37 PM CDT Plan of Treatment Health Maintenance Due Date Last Done Comments Cervical Cancer Screening Pa p Smear (Age 30 to 64) Every 3 Years 1988 Annual Physical 01/17/1991 Hepatitis C 01/17/2006 DTaP, Tdap and Td Vaccines ( 1 - Tdap) 01/17/2007 Hepatitis B Vaccines (1 of 3 - 19+ 3-dose series) 01/17/2007 HPV Vaccines (1 - 3-dose SCD M series) 01/17/2015 Cervical Cancer Screening Pa p with HPV Testing (Age 30 to 64) Every 5 Years 01/17/2018 Cervical Cancer Screening with HPV 01/17/2018 COVID-19 Vaccine (2023-2 5 season) 2025 Meningococcal B Vaccine Aged Out No l onger eligible based on patient's age to complete this topic Meningococcal Vaccine Aged Out No ana johnna eligible based on patient's age to complete this topic Pneumococcal Vaccine: Pediat rics (0 to 5 Years) and At-Risk Patients (6 to 49 Years) Aged Out No longer eligible b ased on patient's age to complete this topic RSV Immunizations Under 20 Months Aged Out No longer eligible based on patient's age to complete this topic
--- OUTSIDE RECORDS SUMMARY | 2025-04-25 16:06 | XMS_ITS | Encounter Summary ---
Author Organization [facility] Address [facility] [place] [address] Care Team Providers Care Animal Care Assistant Name Role Phone Tania Castillo MD Primary Care Provider Unavailable Encounter Details Date Type Department Care Team (Late st Contact Info) Description 06/17/2017 Abstract [place] [address] Tania Castillo MD Social History Tobacco Use Types Packs/Day Years Used Date Smoking Tobacco: Never Assessed Comments Unknown Sex and Gender Information Value Date Recorded Sex Assigned at Not on file Legal Sex Female 6:03 PM CDT Gender Identity Not on file Sexual Orientation Not on file documented as of this encounter Plan of Treatment Not on file documented as of this encounter Visit Diagnoses Not on filedocumented in this encounter Care Teams Animal Care Assistant Relationship Specialty Start Date End Date Tania Castillo MD PCP - General 03/07/16 documented as of this encounter
--- OUTSIDE RECORDS SUMMARY | 2025-04-25 16:06 | XMS_ITS | Clinical Summary ---
Author Organization [facility] Address [address] [place] [address] Care Team Providers Care Manager House Name Role Phone Belinda Phelps BILINGUAL TEACHER ASSISTANT Primary Care Provider + Allergies Active Allergy Reactions Criticality Noted Date Comments Penicillins Anaphylaxis,Angioede ma,O ther (See comments) High 04/16/2013 Reaction: THROAT CLOSES Medications ibuprofen (ADVIL,MOTRIN) 600 mg tablet Take 1 tablet (600 mg total) by mouth every 8 (eight) hours as needed for pain Take with food. 30 tablet 12/14/19 19 Active Additional Information Patient not taking.Reported on 11/29/2021 ondansetron (ZOFRAN) 4 mg tablet Take 1 tablet (4 mg total) by mouth every 6 (six) hours 12 tablet 12/14/19 19 Active Additional Information Patient not taking.Reported on 11/29/2021 dextroamphetamine- amphetamine (ADDERALL) 20 mg tablet Adderall 20 mg tablet Take 1 tablet every day by oral route. 01/31/20 20 Active Adderall XR 20 mg 24 hr capsule Take 1 capsule (20 mg total) by mouth 2 (two) times a day 06/13/20 23 Active ofloxacin (OCUFLOX) 0.3 % ophthalmic solutionIndication s:Acute bacterial conjunctivitis of right eye instill 2 drops in right eye every 2 to 4 hours for 2 days, then 2 drops 4 times daily on days 3 through 7 5 mL 06/29/20 23 Active Active Problems Problem Noted Date Diagnosed Date Calculus of kidney 09/17/2012 Medical History Medical History Date Comments Personal history of urinary calculi Nephrolithiasis - (Added by KRIS Conv) Family History Medical History Relation Name Comments Diabetes Other Diabetes Mellit us - (Added by KRIS Conv) Nephrolithiasis Other Nephrolithia sis - (Added by KRIS Conv) Relation Name Status Comments Other Social History Tobacco Use Types Packs/Day Years Used Date Smoking Tobacco: Former Comments Unknown Sex and Gender Information Value Date Recorded Sex Assigned at Not on file Legal Sex Female 1:12 PM ECONOMIC FORECASTER Gender Identity Not on file Sexual Orientation Not on file Obstetrics History Para Term AB IAB SAB Ectopic Multiple Livin g Live Births 1 Date Outcome GA Total Labor Labor/2nd/3rd Weight Sex Type Anes PTL Julieta A1 A5 Name Clin Last Filed Vital Signs Vital Sign Reading Time Taken Comments Blood Pressure 118/66 06/29/2023 9:28 AM ECONOMIC FORECASTER Pulse 97 06/29/2023 9:28 AM ECONOMIC FORECASTER Temperature 36.7 C (98.1 F) 06/29/2023 9:28 AM ECONOMIC FORECASTER Respiratory Rate 16 06/29/2023 9:28 AM ECONOMIC FORECASTER Oxygen Saturation 98% 06/29/2023 9:28 AM ECONOMIC FORECASTER Inhaled Oxygen Concentration - - Weight 96.6 kg (213 lb) 06/29/2023 9:28 AM ECONOMIC FORECASTER Height 182.9 cm (6') 06/29/2023 9:28 AM ECONOMIC FORECASTER Body Mass Index 28.89 06/29/2023 9:28 AM ECONOMIC FORECASTER Plan of Treatment Health Maintenance Due Date Last Done Comments Cervical Cancer Screening 1988 Depression Screening 1988 Hepatitis C Screening 1988 Varicella Vaccines (1 of 2 - 13+ 2-dose series) 01/17/2001 Hepatitis B Screening 01/17/2006 Regular Well Visit/Exam 18-64 01/17/2006 HPV Vaccines (1 - 3-dose SCD M series) 01/17/2015 DTaP/Tdap/Td Vaccine (2 - Td or Tdap) 02/01/2024 01/31/2014 Covid-19 Vaccine (3 - 2024-2 6 season) 2025 09/30/2020, 09/09/2020 Influenza Vaccine (#1) 2025 06/12/2013 Pneumococcal vaccine <65 Aged Out No longer eligible based on patient's age to complete this topic Insurance Care Teams Manager House Relationship Specialty Start Date End Date Belinda Phelps NP PCP - General Nurse Practitioner 11/29/21
--- OUTSIDE RECORDS SUMMARY | 2025-04-25 16:06 | XMS_ITS | Clinical Summary ---
Author Organization [facility] Address [address] [place] [address] Care Team Providers Care Commercial Crabber Name Role Phone Lion Camarena MD Primary Care Provider [phone] Source Comments [facility],non-owned Affiliates and Associated Physician Practices is amultiple site organization consisting of ambulatory clinics and hospital sitesin [place], [place], [place] and [place]. This disclosure is being madepursuant to the Care Everywhere program and may not contain all information available regarding this patient. Last updated 18.[facility] Allergies Active Allergy Reactions Criticality Noted Date Comments Penicillins Anaphylaxis High 03/07/2016 Medications * Be aware that medications may not be up to date on this document. Alwaysverify current medications with the patient. ibuprofen (MOTRIN) 200 MG tablet Take 200 mg by mouth every 6 hours Active clindamycin (CLEOCIN) 300 MG capsule Take 300 mg by mouth every 6 hours 0 6 Active VICODIN ES 7.5-300 MG Take 1 Tab by mouth as needed 0 6 Active NORCO 5-325 MG tablet Take 1 Tab by mouth as needed 0 6 Active multivitamin daily (THERAGRAN) tablet Take 1 Tab by mouth daily with food Active Loperamide (IMODIUM A-D) 2 MG tablet Take 2 mg by mouth as needed for Diarrhea Active omeprazole (PRILOSEC) 20 MG capsuleIndicati ons:Bile reflux gastritis Take 1 Cap by mouth daily before breakfast 30 Cap 5 6 Active cholestyramine light (QUESTRAN LIGHT) 4 GM/DOSE powderIndicatio ns:Bile reflux gastritis,Irrit able bowel syndrome with diarrhea Take 4 g by mouth at bedtime 300 g 4 6 Active Active Problems Problem Noted Date Diagnosed Date 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 Long/GI 03/2016 IBS (irritable bowel syndrom e) with alternating diarrhea and constipation Gastritis Immunizations Immunization Administration Dates Next Due CovPhoenix S&T primary monoval ent 12+ yr 0.3mL Purple cap 09/30/2020,09/09/2020 Family History Medical History Relation Name Comments Cancer - Colon Neg Hx Colon polyps Neg Hx Social History Tobacco Use Types Packs/Day Years Used Date Smoking Tobacco: Every Day Cigarettes Tobacco Cessation:Ready to Q uit: No; Counseling Given: Yes Comments:5 cigs a day Alcohol Use Standard Drinks/Week Comments Yes 0 (1 standard drink = 0.6 oz pur e alcohol) Comments Unknown Sex and Gender Information Value Date Recorded Sex Assigned at Not on file Legal Sex Female 10:58 AM CDT Gender Identity Not on file Sexual Orientation Not on file Last Filed Vital Signs Vital Sign Reading Time Taken Comments Blood Pressure 112/68 03/07/2016 8:53 AM CDT Pulse 89 03/07/2016 8:53 AM CDT Temperature - - Respiratory Rate 16 03/07/2016 8:53 AM CDT Oxygen Saturation 99% 03/07/2016 8:53 AM CDT Inhaled Oxygen Concentration - - Weight 95.7 kg (211 lb) 03/07/2016 8:53 AM CDT Height 175.3 cm (5' 9) 03/07/2016 8:53 AM CDT Body Mass Index 31.16 03/07/2016 8:53 AM CDT Plan of Treatment Health Maintenance Due Date Last Done Comments HIV SCREENING 01/17/2003 HEPATITIS C SCREENING 01/13/2006 DTAP/TDAP/TD VACCINES (1 - Tdap) 01/17/2007 HEPATITIS B VACCINE (1 of 3 - 19+ 3-dose series) 01/17/2007 PNEUMOCOCCAL VACCINE (1 of 2 - PCV) 01/17/2007 PAP SMEAR 01/17/2009 HPV VACCINE (1 - 3-dose SCDM series) 01/17/2015 DEPRESSION SCREENING 08/14/2024 COVID-19 VACCINE (3 - 2024-2 6 season) 2025 09/30/2020, 09/09/2020 INFLUENZA VACCINE (#1) 2025 ZOSTER VACCINE (1 of 2) 01/17/2038 HIB VACCINE Aged Out No longer eligi ble based on patient's age to complete this topic MENINGOCOCCAL (Group B) VACCINE SHARED DECISION-MAKING Aged Out No longer eligible based on patient's age to complete this topic MENINGOCOCCAL GROUPS A/C/Y/W VACCINE Aged Out No longer eligible b ased on patient's age to complete this topic Insurance [facility] SELF PAY NO INSURANCE Member Subscriber Plan / Payer (Ef fective for All Dates) Name:Carline Florentino Member ID:Not on file Relation to Subscriber:Not on file Name:CARLINE FLORENTINO Subscriber ID:Not on file (Home) Address: [address] [place] [phone] Payer ID:Not on file Group ID:Not on file Type:Self Pay Address: [place], [place] Care Teams Commercial Crabber Relationship Specialty Start Date End Date Lion Camarena MD [address] [place] [address] PCP - General Internal Medicine 02/22/16
--- OUTSIDE RECORDS SUMMARY | 2025-04-25 16:06 | XMS_ITS | Clinical Summary ---
Author Organization [facility] Address [address] [place] [address] Phone Care Team Providers Care Radiology Equipment Servicer Name Role Phone Unavailable Primary Care Provider Unavailabl e Allergies Active Allergy Reactions Criticality Noted Date Comments Penicillins Angioedema High 09/16/2015 Medications ibuprofen (MOTRIN) 200 mg tablet Take 200 mg by mouth every 6 hours as needed for Pain, Mild. Active cholestyramine- aspartame (CHOLESTYRAMINE LIGHT) 4 gram Powder Take 4 Gram by mouth. 6 Active multivitamin-mi nerals (VITAMINS AND MINERALS) tablet Take 1 Tablet by mouth. Active omeprazole (PriLOSEC) 20 mg Capsule, Delayed Release(E.C.) Take 20 mg by mouth. 6 Active fluticasone (FLONASE) 50 mcg/spray [place], SuspensionIndic ations:Other seasonal allergic rhinitis Administer 2 Sprays in each nostril daily. 16 Gram 0 6 Active loratadine (CLARITIN) 10 mg tabletIndicatio ns:Other seasonal allergic rhinitis Take 1 Tablet (10 mg) by mouth daily. 6 Active Active Problems Problem Noted Date Diagnosed Date Tobacco use 03/28/2016 Encounters Date Type Department Care Team Description 03/18/2025 External Device Data [facility] ABSTRACTION Provider, Abstract 02/26/2025 External Device Data [facility] ABSTRACTION Provider, Abstract 02/25/2025 External Device Data [facility] ABSTRACTION Provider, Abstract 02/04/2025 External Device Data [facility] ABSTRACTION Provider, Abstract 01/28/2025 External Device Data [facility] ABSTRACTION Provider, Abstract from Last 3 Months Family History Medical History Relation Name Comments Healthy Father Healthy Mother Relation Name Status Comments Father Alive Mother Alive Social History Tobacco Use Types Packs/Day Years Used Date Smoking Tobacco: Every Day Cigarettes Smokeless Tobacco: Never Alcohol Use Standard Drinks/Week Comments Yes 0 (1 standard drink = 0.6 oz pur e alcohol) social Comments No Sex and Gender Information Value Date Recorded Sex Assigned at Not on file Legal Sex Female 6:00 AM TRAFFIC POLICE OFFICER Gender Identity Not on file Sexual Orientation Not on file Last Filed Vital Signs Vital Sign Reading Time Taken Comments Blood Pressure 112/74 03/28/2016 4:14 PM CDT Pulse 73 03/28/2016 4:14 PM CDT Temperature 36.9 C (98.4 F) 03/28/2016 4:14 PM CDT Respiratory Rate 16 03/28/2016 4:14 PM CDT Oxygen Saturation 100% 03/28/2016 4:14 PM CDT Inhaled Oxygen Concentration - - Weight 90.7 kg (200 lb) 03/28/2016 4:14 PM CDT Height 182.9 cm (6') 03/28/2016 4:14 PM CDT Body Mass Index 27.12 03/28/2016 4:14 PM CDT Plan of Treatment Health Maintenance Due Date Last Done Comments DTAP/TDAP/TD VACCINES (1 - Tdap) 01/17/2007 HEPATITIS B VACCINES (1 of 3 - 19+ 3-dose series) 01/17/2007 HPV/Cotest (21-29) 01/17/2009 HPV VACCINES (1 - 3-dose SCDM series) 01/17/2015 CERVICAL CANCER SCREENING 01/17/2018 HPV/Cotest (30-65) 01/17/2018 PAP SMEAR 01/17/2018 INFLUENZA VACCINE (#1) 2025 COVID-19 Vaccine (2024- season) 2025, 09/09/2020 Insurance [employer] [place]
== END 2025-04-25 16:00 | disposition home or self-care (01) ==
PROVIDERS: Emergency Provider Nurse Practitioner Family; PCP Nurse Practitioner Family
DX: N30.01 Acute cystitis with hematuria (principal); K50.90 Crohn's disease, unspecified, without complications; E66.9 Obesity, unspecified; Z68.32 Body mass index [BMI] 32.0-32.9, adult; Z87.891 Personal history of nicotine dependence
CPT/HCPCS: 81003; 87086; 87186; 99213; G0463

== ENCOUNTER 2025-04-30 10:23 | Emergency (ER) | payer OTHER, SELFPAY ==
[2025-04-30 10:33] VITALS: BP 124/53; PULSE 83; RESP 18; TEMP 36.1; O2SAT 99
[2025-04-30 10:41] LABS: EDUAAPPEAR Clear; EDUABILI Negative (Negative); EDUABLOOD Trace (Negative); EDUACOLOR1 Yellow; EDUAGLUCOSE Negative (Negative); EDUAKETONE Negative (Negative); EDUALEUKO Trace (Negative); EDUANITRATE Negative (Negative); EDUAPH 6.5; EDUAPROTEIN Negative (Negative); EDUASPGRAVITY 1.025; EDUAUROBILI 0.2
--- NOTE | 2025-04-30 11:00 | ED.FEMALEGU ---
HPI - Female Genitourinary General Chief complaint: Urogenital-Female Stated complaint: UTI Time Seen by Provider: 04/30/25 10:50 Source: patient and RN notes reviewed Mode of arrival: ambulatory Limitations: no limitations History of Present Illness HPI Narrative: 35-year-old female presents [facility] complaining of urinary symptoms over the last week. Patient is here proximally 5 days ago diagnosed with urinary tract infection and started on Bactrim. Urine was cultured and showed to be susceptible to Bactrim. Patient reports she does not feel any improvement since starting Bactrim and finish the course this morning. Patient reports dysuria, suprapubic pain, low back pain, frequency, and hesitancy. Patient denies any flank pain, common nausea, vomiting, diarrhea, fevers, body aches, chills, breathing problems, or chest pains. Patient has also been taking pyrdium to help with symptoms. Patient denies any significant past medical history. She says she does have a history of kidney stones. Related Data Home Medications ?Medication ?Instructions ?Recorded ?Confirmed ?Last Taken ?Type dextroamphetamine-amphetamine 20 20 mg PO DAILY 07/21/20 08/28/24 04/17/24 08:00 History mg tablet (Adderall) Allergies Allergy/AdvReac Type Severity Reaction Status Date / Time Penicillins Allergy Severe Swelling Verified 04/30/25 10:37 of Lip/Tongue/Throat Review of Systems Review of Systems: CONSTITUTIONAL: Denies fever, chills, body aches, or sweats. EYES: Denies visual changes, redness, or discharge. ENT: Denies rhinorrhea, congestion, sore throat, or otalgia. CARDIOVASCULAR: Denies chest pain, palpitations, or edema. RESPIRATORY: Denies cough or dyspnea. GASTROINTESTINAL: Denies abdominal pain, nausea, vomiting, or diarrhea. GENITOURINARY: Positive for dysuria, increased frequency, hesitancy, suprapubic pain. Negative for hematuria, vaginal discharge, vaginal irritation, pelvic pain, vaginal bleeding. SKIN: Denies rash or itching. MUSCULOSKELETAL: Positive for low back pain. Negative for flank pain, joint pain, or myalgia. NEUROLOGIC: Denies headache, numbness, or weakness. PSYCHIATRIC: Denies anxiety or depression. All other systems reviewed are negative, except as documented in HPI. COUNTS INCLUDE 234 BEDS AT THE [facility] Past Medical History Medical History Obesity and not yet delivered Depression Renal disease Kidney stones Abnormal uterine bleeding Crohn's disease Surgical History Surgical History Hx of tubal ligation Hx of laparoscopy Family History Family History Daughter Sickle-cell trait Son Sickle-cell trait Other Sickle-cell trait Other Patient denies significant medical history Social History Social History Years smoked: 10 Smoking status: Former smoker Tobacco type: cigarettes Second hand tobacco smoke exposure: No Smoking end date: 04/23/21 Alcohol intake: current Substance use: never Do You Feel Safe in your Home?: Yes Lack of Transportation: No Lack of Food: Never True Current Housing: I Have Housing Concerned About Future Housing: No Difficulty Paying Gas/Electric Bills: No Difficulty Paying for Meds: No Currently Unemployed: No Education: Associate Degree Difficulty w/ Childcare or Family Care: No Living arrangements: with family Gender identity (if verbalized by the patient): Female Spiritual care concerns: No Comments At the time of my signature, I reviewed and agree with the nursing past medical, surgical, social, and family history. There is no relevant family history pertinent to the patient complaint. Exam Narrative: GENERAL: This is a well-nourished, well-developed adult, in no apparent distress. They are non ill-appearing, nontoxic appearing. HEAD: normocephalic, atraumatic. EYES: Sclera clear/white. Vision is grossly intact. Conjunctiva normal bilaterally. Extraocular movements intact. EARS: External ears normal,Hearing grossly intact. NOSE: External nose normal THROAT: Mucous membranes moist NECK: Normal range of motion CARDIOVASCULAR: Regular rate and rhythm. Normal S1-S2. No clicks, gallops, rubs, murmurs. RESPIRATORY: Respiratory rate normal, respiratory effort nonlabored, no respiratory distress. Lung sounds clear to auscultation throughout. Lung sounds equal bilaterally. No adventitious lung sounds. GASTROINTESTINAL: Abdomen soft, flat, non-tender, nondistended. Bowel sounds are active. No hepato-splenomegaly, or palpable masses. No guarding or rigidity. No rebound tenderness. SKIN: warm, Dry, intact with no suspicious lesions or rash, good texture and turgor. NEURO: awake, alert, and oriented to person, place and time. There were no obvious focal neurologic abnormalities. EXTREMITIES: No joint tenderness, effusion, or edema noted. BACK: Nontender without deformity. No CVA tenderness. Course Course Emergency Course: Portions of this record may have been created with voice recognition software Level of Care: Express Care Visit Vital Signs Vital signs: Vital Signs Temperature 97.0 F L 04/30/25 10:33 Pulse Rate 83 04/30/25 10:33 Respiratory Rate 18 04/30/25 10:33 Blood Pressure 124/53 L 04/30/25 10:33 Pulse Oximetry 99 04/30/25 10:33 Oxygen Delivery Room Air 04/30/25 10:33 Temperature 97.0 F L 04/30/25 10:33 Pulse Rate 83 04/30/25 10:33 Respiratory Rate 18 04/30/25 10:33 Blood Pressure 124/53 L 04/30/25 10:33 Pulse Oximetry 99 04/30/25 10:33 Oxygen Delivery Room Air 04/30/25 10:33 MDM - Female Genitourinary MDM Narrative Medical decision making narrative: Urine dipstick shows trace blood and leukocytes. Urine culture pending. Patient's symptoms appear a urinary tract infection. Bactrim appeared to be Susceptible on previous culture results for E coli, given refractory symptoms will give her a course of ciprofloxacin. Patient has no CVA tenderness, afebrile, no systemic symptoms. Symptoms are not consistent with a kidney stone. No flank pain, no nausea or vomiting. Discussed physical exam findings. Advised supportive measures and signs/symptoms to go to the ER. Pt is appropriate for outpt treatment and f/u. Differential Diagnosis Differential diagnosis: Likely urinary tract infection, cystitis and other (Pyelonephritis, renal stone) Lab Data Attestation: I reviewed the patient's lab results. Labs: Lab Results 04/30/25 Range/Units 10:38 POC Urine Color Yellow POC Urine Clarity Clear POC Urine pH 6.5 POC Ur Specif Gates 1.025 POC Urine Protein Negative (Negative) POC Ur Glucose (UA) Negative (Negative) POC Urine Ketones Negative (Negative) POC Urine Blood Trace (Negative) POC Urine Nitrite Negative (Negative) POC Urine Bilirubin Negative (Negative) POC Urine Urobilinogen 0.2 POC U Leukocyte Esteras Trace (Negative) Discharge Plan Discharge Clinical Impression: Urinary tract infection Patient Disposition: Home Condition: Stable Instructions: Antibiotic Form, Urinary Tract Infection in Women (ED) Additional Instructions: Take the antibiotic as prescribed The urine will be sent of for a culture to identify what type of bacteria is causing your infection. If the culture shows that the antibiotic will not get rid of your infection, you will be notified and a new antibiotic will be called in for you. Increase water intake you will need to follow up with your PCP 3-5 days. Go to the ER for any worsening symptoms, abdominal pain, fevers, nausea, vomiting, or any other concerns Patient Language: Kyrgyz Prescriptions: New ciprofloxacin HCl 500 mg tablet 500 mg PO Q12H 7 Days Qty: 14 0RF No Action dextroamphetamine-amphetamine [Adderall] 20 mg tablet 20 mg PO DAILY Follow-up/Referrals: Belinda Phelps APRN [Primary Care Provider, [facility]] Time of Disposition: 10:55
== END 2025-04-30 10:59 | disposition home or self-care (01) ==
PROVIDERS: PCP Nurse Practitioner Family
DX: N39.0 Urinary tract infection, site not specified (principal); K50.90 Crohn's disease, unspecified, without complications; E66.9 Obesity, unspecified; Z68.31 Body mass index [BMI] 31.0-31.9, adult; Z87.891 Personal history of nicotine dependence; Z87.442 Personal history of urinary calculi
CPT/HCPCS: 81003; 87086; 99213; G0463

== ENCOUNTER 2025-07-28 13:02 | Emergency (ER) | payer OTHER, SELFPAY ==
--- NOTE | 2025-07-28 13:06 | ED.URI ---
HPI - URI/Sore Throat General Chief Complaint: Upper Respiratory Infection Stated Complaint: strep Time Seen by Provider: 07/28/25 13:29 Source: patient and RN notes reviewed Mode of arrival: ambulatory Limitations: no limitations History of Present Illness HPI Narrative: 35-year-old female presents with concern for sore throat that started this morning. She reports that is radiating to the right ear. She denies runny nose, stuffy nose, cough, headache, stomachache, fever aches, chills, sweats. She reports strep is white around her kids school. She works as a dental visitor service assistant MD elicited complaint: sore throat Related Data Home Medications ?Medication ?Instructions ?Recorded ?Confirmed ?Last Taken ?Type dextroamphetamine-amphetamine 20 20 mg PO DAILY 07/21/20 08/28/24 04/17/24 08:00 History mg tablet (Adderall) Allergies Allergy/AdvReac Type Severity Reaction Status Date / Time Penicillins Allergy Severe Swelling Verified 07/28/25 13:12 of Lip/Tongue/Throat Review of Systems Review of Systems: CONSTITUTIONAL: Denies malaise, chills, sweats, or fever. EYES: Denies visual changes, redness, or discharge. ENT: Reports rhinorrhea, congestion, sinus pain. Reports otalgia and sore throat. CARDIOVASCULAR: Denies chest pain, palpitations, or edema. RESPIRATORY: Denies cough. Denies dyspnea. GASTROINTESTINAL: Denies abdominal pain, nausea, vomiting, diarrhea SKIN: Denies rash or itching. MUSCULOSKELETAL: Denies myalgia. NEUROLOGIC: Denies headache. All systems reviewed & are unremarkable except as noted in HPI and below PMFSH Past Medical History Medical History Obesity and not yet delivered Depression Renal disease Kidney stones Abnormal uterine bleeding Crohn's disease Surgical History Surgical History Hx of tubal ligation Hx of laparoscopy Family History Family History Daughter Sickle-cell trait Son Sickle-cell trait Other Sickle-cell trait Other Patient denies significant medical history Social History Social History Years smoked: 10 Smoking status: Former smoker Tobacco type: cigarettes Second hand tobacco smoke exposure: No Smoking end date: 04/23/21 Alcohol intake: current Substance use: never Lack of Transportation: No Lack of Food: Never True Current Housing: I Have Housing Concerned About Future Housing: No Difficulty Paying Gas/Electric Bills: No Difficulty Paying for Meds: No Currently Unemployed: No Education: Associate Degree Difficulty w/ Childcare or Family Care: No Living arrangements: with family Gender identity (if verbalized by the patient): Female Spiritual care concerns: No Comments At time of signature, agree with nursing past medical, surgical, social and family history. There is no relevant family history pertinent to the presenting complaint Exam Narrative: GENERAL: Well-appearing, well-nourished, and in no acute distress. HEAD: Normocephalic EYES: PERRLA, conjunctivae clear ENT: Nares clear. Mucous membranes moist. TM pearly mcclendon with dull light reflex bilaterally; no tragal tenderness. Oropharynx erythematous without lesions. Right Tonsils enlarged and without exudate, left tonsil not enlarged, no drooling, no hoarseness, no trismus, uvula midline. NECK: Supple. No lymphadenopathy CHEST: Clear to auscultation, breath sounds equal. No wheezing, rhonchi, rales, or stridor. No respiratory distress, speaks in full sentences. HEART: Regular rate and rhythm. No murmur heard. SKIN: Warm, dry, no rash. NEURO: Alert and oriented x3. PSYCH: Normal mood and affect Course Course Emergency Course: Patient is aware of diagnosis, understands and agrees to treatment plan. Anticipatory guidance given. Patient agrees to follow-up as directed and is aware of reasons to seek care at the emergency department. Portions of this record may have been created with voice recognition software Level of Care: [facility] [place] Visit MDM Differential Diagnosis Differential Diagnosis: I evaluated this patient in the [facility] care. History is obtained from patient who is an independent historian and physical exam was performed.? Available medical records were reviewed. ? Exam findings and relevant testing show no acute concerns or changes; patient is non-toxic appearing and is in no distress. ? Differential diagnosis considered: Hernandez virus, strep pharyngitis, allergic rhinitis, upper respiratory tract infection, sinusitis, rhinosinusitis, nasopharyngitis. viral pharyngitis, otitis media, otitis externa, pneumonia, bronchitis, viral cough syndrome, viral syndrome, and influenza. Differential diagnosis and treatment plan were discussed with the patient. Patient agrees with discussion and after shared medical decision making agrees with plan of care. All questions were answered to the patient's satisfaction. Patient is appropriate for outpatient treatment and follow-up. Discharge Plan Discharge Clinical Impression: Pharyngitis Patient Disposition: Home Condition: Stable Instructions: Antibiotic Form, Pharyngitis (ED) Additional Instructions: Your rapid strep swab was negative today at [facility]. A throat culture will be sent to the laboratory for further testing. If the test is positive, you will receive a phone call within 48 hours and an appropriate antibiotic will be initiated at that time. Your symptoms are likely due to a viral illness, which is not treated with antibiotics. Viral symptoms can be present for up to a few weeks. -Alternate Tylenol and Motrin per package directions for fever or pain. -Antihistamine medication such as Benadryl at night and Zyrtec during the day can help improve symptoms. -Eat and drink things that are easy to swallow, like tea or soup, or popsicles to suck on. -Oral rinses such as: Salt water gargles and/or may use topical anesthetic (eg. Chloraseptic spray) or lozenges to relieve dryness or throat pain). -Frequent hand washing or hand diplomatic courier is one of the best ways to prevent spread of infection. -Follow up with primary care provider in 2-3 days if condition is not improving; or seek ER visit if you have trouble breathing, cannot drink enough fluids, have muffled voice, difficulty opening your mouth, or severe swelling. Patient Language: Kyrgyz Prescriptions: New methylprednisolone [Medrol (Dez)] 4 mg tablets,dose pack See Rx Instructions .ROUTE .COMPLEX Qty: 21 0RF Rx Instructions: orally per package directions No Action dextroamphetamine-amphetamine [Adderall] 20 mg tablet 20 mg PO DAILY Follow-up/Referrals: Belinda Phelps APRN [Primary Care Provider, Family Practice] Stand Alone Forms: Work/School Release IP Time of Disposition: 13:32
[2025-07-28 13:13] VITALS: BP 116/68; PULSE 79; RESP 20; TEMP 36.6; O2SAT 100
[2025-07-28 14:01] LABS: EDSTREPNEGPOS1 Negative (Negative)
== END 2025-07-28 13:39 | disposition home or self-care (01) ==
PROVIDERS: Emergency Provider Nurse Practitioner; PCP Nurse Practitioner Family
DX: J02.9 Acute pharyngitis, unspecified (principal); K50.90 Crohn's disease, unspecified, without complications; E66.9 Obesity, unspecified; Z68.29 Body mass index [BMI] 29.0-29.9, adult; Z87.891 Personal history of nicotine dependence
CPT/HCPCS: 87081; 87880; 99213; G0463